=== PATIENT | female | born 1950 | race Caucasian/White ===

== ENCOUNTER 2023-04-28 13:44 | Emergency (ER) | payer MEDICARE, MEDICAID, SELFPAY ==
--- NOTE | ~2023-04-28 | US_ITS ---
US venous doppler [facility] DATE: 04/28/2023 16:28 INDICATION: Pain and swelling of left lower extremity TECHNIQUE: Real-time and color flow imaging and Doppler analysis of the veins of the left lower extre mity COMPARISON: None FINDINGS: Left greater saphenous vein is patent. There is spontaneous and phasic flow and normal augmentation and color flow signal and normal [place] of the left common femoral, femoral and popliteal veins. The posterior tibial and peroneal veins are not visualized, possibly due to edema. IMPRESSION: Nonvisualization of the posterior tibial and peroneal veins which may be due to edema No evidence of deep venous thrombosis of left common femoral, femoral or popliteal veins Reviewed, dictated and finalized at [facility]. Reviewed, dictated and finalized at [facility]. IMPRESSION: Nonvisualization of the posterior tibial and peroneal veins which m ay be due to edema No evidence of deep venous thrombosis of left common femoral, femoral or poplit eal veins
[2023-04-28 13:53] VITALS: BP 151/74; PULSE 83; RESP 20; TEMP 36.6; O2SAT 100
--- NOTE | 2023-04-28 17:27 | ED.LOWEXIN ---
HPI - Extremity Injury (Lower) General Chief Complaint: Extremity Injury, Lower <Vonnie Longoria PA-C - Last Filed: 04/28/23 19:26> Stated Complaint: left leg pain <Vonnie Longoria PA-C - Last Filed: 04/28/23 19:26> Time Seen by Provider: 04/28/23 17:06 <Vonnie Longoria PA-C - Last Filed: 04/28/23 19:26> Source: patient <ISABELLE Owens Last Filed: 04/28/23 19:26> Mode of arrival: ambulatory <ISABELLE Owens Last Filed: 04/28/23 19:26> Limitations: other (Poor historian) <Vonnie Longoria PA-C - Last Filed: 04/28/23 19:26> History of Present Illness HPI Narrative: This is a 72-year-old female that presents emergency department for left calf pain. Ongoing over the last couple of days. Reports a possible injury while trying to step up onto a stool. She was brought to the emergency department to rule out a blood clot in her leg. The pain is achy and constant. She has been taking Tylenol with some relief. Denies fever, chest pain, shortness of breath, new edema, or erythema of the leg. <Vonnie Longoria PA-C - Last Filed: 04/28/23 19:26> Related Data Allergies/Adverse Reactions: Allergies Allergy/AdvReac Type Severity Reaction Status Date / Time codeine Allergy Intermediate Unverified 07/07/19 13:35 Penicillins Allergy Intermediate Unverified 07/07/19 13:35 Sulfa (Sulfonamide Allergy Intermediate Unverified 07/07/19 13:35 Antibiotics) <Vonnie Longoria PA-C - Last Filed: 04/28/23 19:26> Review of Systems Review of Systems: CONSTITUTIONAL: Denies fever CARDIOVASCULAR: Denies chest pain, or edema. RESPIRATORY: Denies dyspnea. SKIN: Denies rash MUSCULOSKELETAL: Reports myalgia. <ISABELLE Owens Last Filed: 04/28/23 19:26> All systems reviewed & are unremarkable except as noted in HPI and below <Vonnie Longoria PA-C - Last Filed: 04/28/23 19:26> [facility] Past Medical History Medical History: Medical History (Updated 04/29/23 @ 00:00 by Danyel Polk) History of diabetes mellitus <Vonnie Longoria PA-C - Last Filed: 04/28/23 19:26> Social History Social History: Social History (Updated 04/28/23 @ 17:29 by Vonnie Longoria PA-C) Smoking status: Never smoker <Vonnie Longoria PA-C - Last Filed: 04/28/23 19:26> Exam Narrative: GENERAL: Well-appearing, well-nourished, and in no acute distress. HEAD: Normocephalic, atraumatic. EYES: EOMI. CHEST: No respiratory distress. HEART: Regular rate EXTREMITIES: Normal range of motion. Edema to the bilateral lower extremities. No erythema or warmth. Normal DP pulses. Normal sensation. Left posterior calf with mild tenderness to palpation SKIN: Warm, dry, no rash. NEURO: No focal deficits. Alert and oriented x3. PSYCH: Normal mood and affect <Vonnie Longoria PA-C - Last Filed: 04/28/23 19:26> Course Course Emergency Course: Had a lengthy discussion with the patient about the limitations of our ultrasound today. With her having symptoms, several risk factors, and an elevated D-dimer we will presumptively treat for a DVT in her calf after discussion with Dr. Degroot. He will also get her set up with a repeat ultrasound soon <Vonnie Longoria PA-C - Last Filed: 04/28/23 19:26> BDC MANAGER/PA Physician Supervision This is a was performed by both a physician and an APC. I performed all aspects of the MDM as documented w/ the following additions: 72-year-old female presenting with calf pain. Due to body habitus the ultrasound was equivocal. After discussed with PCP should be started on anticoagulation and will obtain a different DVT scan outpatient. All questions answered. Patient in agreement w/ disposition. <Lai Mallory MD - Last Filed: 04/30/23 00:38> Consultations Consultation #1: Spoke with Dr. Degroot about patient and work-up. He would like patient to be presumptively treated for a DVT in her calf. He will get her set up with a rep
[2023-04-28 18:04] LABS: Basophils Percent Auto 0.4 % (0.2-1.2); Eosinophils Absolute Auto 0.1 K/mm3 (0-0.3); Eosinophils Percent Auto 1.6 % (0-4.4); Hematocrit 42.3 % (37.0-47.0); Hemoglobin 13.3 g/dL (12.0-15.0); Immature Granulocyte Absolute 0.03 K/mm3 (0.00-0.031); Immature Granulocyte Percent A 0.4 % (0-0.5); Lymphocytes Absolute Auto 2.53 K/mm3 (0.9-3.2); Lymphocytes Percent Auto 36.5 % (18.3-44.2); Mean Corpuscular HGB Conc 31.4 g/dl (32-36); Mean Corpuscular Hemoglobin 26.4 pg (26-34); Mean Corpuscular Volume 84.1 fl (80-100); Mean Platelet Volume 9.8 fl (7.4-10.4); Monocytes Absolute Auto 0.7 K/mm3 (0.1-0.6); Monocytes Percent Auto 9.5 % (2.6-8.5); Neutrophils Absolute Auto 3.6 K/mm3 (1.3-6.7); Neutrophils Percent Auto 51.6 % (45.5-73.1); Platelet Count Result 256 k/mm3 (150-375); Red Blood Count 5.03 M/mm3 (4.2-5.4); Red Cell Distribution Width 16.7 % (11.5-14.5); White Blood Count 6.9 K/mm3 (4.5-10.0)
[2023-04-28 18:14] LABS: Alanine Aminotransferase 19 U/L (6-35); Albumin Level 4.3 g/dL (3.5-5.1); Alkaline Phosphatase 128 U/L (38-126); Anion Gap 7 mmol/L (8-16); Aspartate Amino Transferase 27 U/L (14-36); Bilirubin,Total 0.4 mg/dL (0.2-1.3); Blood Urea Nitrogen 21 mg/dL (7-17); Calcium 8.8 mg/dL (8.4-10.2); Carbon Dioxide 30 mmol/L (22-30); Chloride 100 mmol/L (98-107); Estimated CRCL calculation 61 ml/min; Estimated Glomerular Filt Rate > 60; Glucose 107 mg/dL (65-110); Potassium 3.9 mmol/L (3.4-5.0); Prothrombin Time 13.4 Seconds (11.1-14.7); Sodium 137 mmol/L (137-145)
[2023-04-28 18:15] LABS: Partial Thromboplastin Time 29.2 SECONDS (22.3-36.8)
[2023-04-28 18:28] LABS: D Dimer 1.16 ug/mL (<0.48)
[2023-04-28] MEDS: RIVAROXABAN 15 MG TABLET PO (19:26)
[2023-04-28] MEDS: ACETAMINOPHEN 500 MG TABLET 1000 MG PO (19:26)
--- NOTE | 2023-04-28 19:30 | PC.NURSE ---
Attempted to call pt contacts multiple times with no success. Pt states she lives home alone. Pt states she does not walk. Pt appears to be mentally delayed.
== END 2023-04-28 20:27 | disposition home or self-care (01) ==
PROVIDERS: Emergency Provider Physician Assistant; PCP Internal Medicine
DX: M79.662 Pain in left lower leg (principal); R79.1 Abnormal coagulation profile; E11.9 Type 2 diabetes mellitus without complications
CPT/HCPCS: 36415; 80053; 85025; 85380; 85610; 85730; 93971; 99284; A9270

== ENCOUNTER 2025-02-15 06:19 | Emergency (ER) | payer MEDICARE, MEDICAID, SELFPAY ==
--- NOTE | ~2025-02-15 | XR_ITS ---
XR chest 1V 02/15/2025 09:28 Indication: Altered mental status. Shoulder pain. Procedure: AP view of the chest Comparison: 07/07/2019 Findings: Cardiomegaly. Pulmonary vascular congestion. No pleural effusion or pneumothorax. No acute osseous abnormality. Impression: 1: Cardiomegaly with pulmonary vascular congestion. Reviewed, dictated and finalized at location [facility]. Impression: 1: Cardiomegaly with pulmonary vascular congestion.
--- NOTE | ~2025-02-15 | CT_ITS ---
CT brain wo con Ordering provider: Lai Mallory MD History: 74 years Female with . AMS . Comparison: None. Technique: CT of the head without contrast. Radiation reduction technique utilized. The dose-length p roduct was 681 mGy-cm. FINDINGS: BRAIN PARENCHYMA AND CSF SPACES: Mild leukoaraiosis and diffuse cortical atrophy. Mild atheromatous d isease. No midline shift, mass effect or hemorrhage. The brain parenchyma and CSF spaces are otherwi se normal. VISUALIZED PARANASAL SINUSES: Right maxillary sinus disease. Otherwise, Well aerated. MASTOIDS: Well aerated. BONES: Bifid anterior arch of C1. The bones appear intact. SOFT TISSUES: Visualized nasopharynx is normal. Superficial soft tissues are normal. IMPRESSION: No acute intracranial findings. Reviewed, dictated and finalized at location A.
--- NOTE | ~2025-02-15 | CT_ITS ---
Noncontrast CT scan of the cervical spine Technique: Multiple contiguous axial [address] images of the cervical spine were obtained and rec onstructed in 2D sagittal and coronal planes on the acquisition scanner. Dose reduction technique was used on this scan by utilizing automated exposure control, adjustment of the mA and/or kV according to patient size. The dose-length product (DLP) was 527.03 mGy-cm. Clinical History: Pain Findings: No acute fractures or dislocations. There is moderate to advanced degenerative disc narrow ing at C5-C6 and C6-C7. There is moderate degenerative disc narrowing at C3-C4 and C4-C5. There is mu ltilevel facet arthropathy the cervical spine. There is probable chronic fracture deformity at the an terior arch of C1. There is bilateral neural foraminal narrowing at C3-C4. There is left neural edilberto inal narrowing at C4-C5. There is no definite high-grade canal stenosis. No prevertebral soft tissue swelling. Impression: No acute fracture or subluxation of the cervical spine. Chronic fracture deformity the anterior arch of C1. Degenerative spondylosis, as above. Reviewed, dictated and finalized at [facility]. Impression: No acute fracture or subluxation of the cervical spine. Chronic fracture deformity the anterior arch of C1. Degenerative spondylosis, as above.
--- NOTE | ~2025-02-15 | XR_ITS ---
Right Shoulder Technique: AP and scapular Y views were obtained. Clinical History: Pain Findings: No fracture or dislocation is seen. Osseous alignment is anatomic. The glenohumeral and acr omioclavicular joint spaces are preserved. Soft tissues are unremarkable. Impression: Unremarkable right shoulder radiographs. Reviewed, dictated and finalized at [facility]. Impression: Unremarkable right shoulder radiographs.
[2025-02-15 06:22] VITALS: BP 153/80; PULSE 101; RESP 20; TEMP 36.6; O2SAT 97
--- OUTSIDE RECORDS SUMMARY | 2025-02-15 07:19 | XMS_ITS | Encounter Summary ---
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 Historical Provider Final Res ult documented in this encounter Visit Diagnoses Not on filedocumented in this encounter Care Teams Applied Computer Science Professor Relationship Specialty Start Date End Date No, Physician PCP - General 08/12/18 documented as of this encounter
--- OUTSIDE RECORDS SUMMARY | 2025-02-15 07:19 | XMS_ITS | Referral Summary ---
Author Organization [facility] Physician Office Building [address] [place] [id number] Care Team Providers Care House Nurse Name Role Phone No, Physician Primary Care Provider [phone] Allergies Active Allergy Reactions Criticality Noted Date Comments Codeine Sulfate Unknown 02/05/2019 Penicillin G Benzathine Unknown 02/05/2019 Sulfa (Sulfonamide Antibiotics) Unknown 01/25 Medications clindamycin (CLEOCIN) 150 mg capsule 05/25/2018 Active ezetimibe (ZETIA) 10 mg tablet 07/27/2018 Active ibuprofen (ADVIL,MOTRIN) 800 mg tablet 06/01/2018 Activ e levoFLOXacin (LEVAQUIN) 750 mg tablet 07/29/2018 Active levothyroxine (SYNTHROID, LEVOTHROID) 75 mcg tablet 08/24/2018 Active losartan (COZAAR) 50 mg tablet 07/27/2018 Active omeprazole (PriLOSEC) 20 mg capsule 06/26/2018 Active pravastatin (PRAVACHOL) 40 mg tablet 07/27/2018 Active sucralfate (CARAFATE) 1 gram tablet 07/24/2018 Active traMADol (ULTRAM) 50 mg tablet Take 50 mg by mouth every 6 (six) hours as needed for pain. Active cyclobenzaprine (FLEXERIL) 10 mg tablet 11/02/2018 Active metFORMIN (GLUCOPHAGE) 500 mg tablet 10/23/2018 Active Active Problems Problem Noted Date Diagnosed Date Subacromial impingement of right shoulder 2017 Biceps tendinitis on right 08/25/2018 Trapezius muscle spasm 08/25/2018 Social History Tobacco Use Types Packs/Day Years Used Date Smoking Tobacco: Never Smokeless Tobacco: Never PHQ-2 Answer Date Recorded PHQ-2 Score 0 12/30/2018 Personal Safety Answer Date Recorded Getting School Help Needed Not on file 10/08 Comments Unknown Sex and Gender Information Value Date Recorded Sex Assigned at Not on file 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 Gender Identity Not on file Sexual Orientation Not on file Last Filed Vital Signs Vital Sign Reading Time Taken Comments Blood Pressure 144/77 06/07/2016 7:52 AM CDT Pulse 68 06/07/2016 7:52 AM CDT Temperature 36.7 C (98 F) 06/07/2016 7:52 AM CDT Respiratory Rate - - Oxygen Saturation 95% 06/07/2016 7:52 AM CDT Inhaled Oxygen Concentration - - Weight 117.9 kg (260 lb) 08/25/2018 8:37 AM CDT Height 160 cm (5' 2.99 ) 02/05/2019 11:03 AM CDT Body Mass Index 46.06 08/25/2018 8:37 AM CDT Plan of Treatment Not on file Insurance * Guarantor: John Lambert Account Type Relation to Patient Date of Phone Billing Address Personal/Family Self 1950 [address] [place] [address] [facility] MEDICARE ADV[facility]AGE [facility] Address: [address] [address] [place] [address] [address] [place] [id number] Care Teams House Nurse Relationship Specialty Start Date End Date No, Physician PCP - General 08/12/18
--- OUTSIDE RECORDS SUMMARY | 2025-02-15 07:19 | XMS_ITS | Encounter Summary ---
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 Historical Provider Final Res ult documented in this encounter Visit Diagnoses Not on filedocumented in this encounter Care Teams Joy Loading Machine Operator Relationship Specialty Start Date End Date No, Physician PCP - General 08/12/18 documented as of this encounter
--- OUTSIDE RECORDS SUMMARY | 2025-02-15 07:19 | XMS_ITS | Encounter Summary ---
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 Historical Provider Final Res ult documented in this encounter Visit Diagnoses Not on filedocumented in this encounter Care Teams Director Of Institutional Research Relationship Specialty Start Date End Date No, Physician PCP - General 08/12/18 documented as of this encounter
--- OUTSIDE RECORDS SUMMARY | 2025-02-15 07:19 | XMS_ITS | Clinical Summary ---
Author Organization [facility] Physician Office Building [address] [place] [phone] Care Team Providers Care Relay Mechanic Name Role Phone No, Physician Primary Care Provider [phone] Allergies Active Allergy Reactions Criticality Noted Date [...] on right 08/25/2018 Trapezius muscle spasm 08/25/2018 Surgical History Surgery Date Site/Laterality Comments KNEE SURGERY HYSTERECTOMY FOOT SURGERY HAND SURGERY ELBOW SURGERY BLADDER SURGERY Medical History Medical History Date Comments Arthritis Hypertension Family History Medical History Relation Name Comments Cancer Brother Stroke Father Heart disease Mother Relation Name Status Comments Brother Father Mother Social History Tobacco Use Types Packs/Day Years Used Date Smoking Tobacco: Never Smokeless Tobacco: Never PHQ-2 Answer Date Recorded PHQ-2 Score 0 12/30/2018 Personal Safety Answer Date Recorded Getting School Help Needed Not on file 10/08 Comments Unknown Sex and Gender Information Value Date Recorded Sex Assigned at Not on file 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 [place] [address] [facility] MEDICARE ADVANTAGE * Guarantor: John Lambert Account Type Relation to Patient Date of Phone Billing Address Personal/Family Self [address] [place] [address] Care Teams Relay Mechanic Relationship Specialty Start Date End Date No, Physician PCP - General 08/12/18
--- OUTSIDE RECORDS SUMMARY | 2025-02-15 07:19 | XMS_ITS | Encounter Summary ---
Author Organization 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 Historical Provider Final Res ult documented in this encounter Visit Diagnoses Not on filedocumented in this encounter Care Teams Uniform Force Captain Relationship Specialty Start Date End Date No, Physician PCP - General 08/12/18 documented as of this encounter
--- OUTSIDE RECORDS SUMMARY | 2025-02-15 07:20 | XMS_ITS | Data Portability ---
Author Organization [facility], Main Office Address [address] [place] [address] Care Team Providers Care Military Police Officer Name Role Phone HOLLAND DEGROOT Primary Care Provider HOLLAND DEGROOT Referring Provider Assessment Encounter Date Assessment Date Assessment LastModified by Organization Details LastModified Time 04/16/2023 04/16/2023 12/18/2022: Labs obtained after patient visit. Case sent to [facility] Urine micro alb 45.9 TSH: 7.690, FT4: 0.78 CMP: gluc 121, TP 8.4H,Alb 4.6H Chol 280, TG 148, HDL 63, LDL 187 CBC: Stable Not available 04/16/2023 08:42:45 03/03/2024 03/03/2024 12/18/2022: Labs obtained after patient visit. Case sent to [facility] Urine micro alb 45.9 TSH: 7.690, FT4: 0.78 CMP: gluc 121, TP 8.4H,Alb 4.6H Chol 280, TG 148, HDL 63, LDL 187 CBC: Stable Not available 03/03/2024 11:37:05 Plan of Treatment Reminders Order Date Submit Date Provider Last Modified By Organization Details Last Modified Time Details Appointments Any 15 2024 01:15P Concepcion vital MD Not available Not available Not available Lab lipid panel, serum 2023 024 LEIGH Not available 03/03/2024 14:06:10 CMP, serum or plasma 2023 024 LEIGH Not available 03/03/2024 14:06:17 CBC w/ auto diff 2023 024 LEIGH Not available 03/03/2024 13:51:03 TSH + free T4, serum 2023 024 [email or web address] Not available 03/10/2024 09:22:39 vitamin D, 25-hydrox y, total, serum 2023 024 Not available 03/10/2024 09:22:39 microalbu min, urine 2023 024 LEIGH Not available 03/03/2024 16:38:21 glycohemo globin, total, blood 2023 024 LEIGH Not available 03/03/2024 20:46:49 vitamin D, 25-hydrox y, total, serum 2022 023 Not available 04/23/2023 14:45:24 lipid panel, serum 2022 023 LEIGH Not available 04/16/2023 13:11:10 CMP, serum or plasma 2022 023 LEIGH Not available 04/16/2023 13:11:18 CBC w/ auto diff 2022 023 LEIGH Not available 04/16/2023 13:14:34 TSH + free T4, serum 2022 023 Not available 04/23/2023 14:45:07 Referral pulmonolo gist referral 2023 024 [email or web address] Ray Medina MD, [address] [place], [address], 09/06/2024 11:13:10 podiatris t referral 2023 024 [email or web address] Ryan Smith DPM, [address], [place], [address], 09/06/2024 11:13:[address] referral 2023 024 [email or web address] [facility] (Audiology), [address], [place], [address], 09/30/2024 18:47:14 orthopedi c surgeon referral 2022 023 [email or web address] Rajesh Mazariegos MD, [address], [facility], [place], [address], 11/21/2023 11:11:03 physical therapist referral 2022 023 [email or web address] [facility], [address], [place], [address], 11/05/2023 15:56:02 pulmonolo gist referral 2022 023 [email or web address] Ray Medina MD, [address] [place], [address], 11/21/2023 11:11:02 podiatris t referral 2022 023 [email or web address] Ryan Smith DPM, [address], [place], [address], 11/21/2023 11:11:03 Procedures None recorded. Surgeries None recorded. Imaging DEXA, axial skeleton [email or web address] [place] [address] (Radiology), [address] [place], [address], 09/21/2024 08:42:57 XR, knee, 3 view 2022 023 [facility] (Radiology), [address] [place], [address], 04/16/2023 14:34:35 DEXA, axial skeleton 2022 023 [facility] (Radiology), [address] [place], [address], 04/16/2023 15:49:20 Medication Orders None recorded. Patient TargetsNo targets recorded. Patient Instructions Encounter Date Encounter Id Patient Instructions Last Modified By Organization Details Last Modified Time 03/03/2024 [id number] dementia rating scale-2* [email or web address] Not available 03/04/2024 12:59:40 alcohol misuse* lian 2 Not available 03/03/2024 17:51:41 multi-dimensiona l health assessment questionnaire* [email or web address] 2 Not available 03/03/2024 17:51:41 Personalized Hea lt Plan and Screening Recommendations Advance Directives - Do you have one? Advance Directives - Do we have your advance directive on file in your health record? Primary Prevention/Interven tion (prevents or decreases the chance of common diseases from occurring) Smoking Risk: Alcohol Misuse Screening: Weight: Physical activity: Nutrition: Fall Risk (screened today): Vaccines Pneumococcal: Influenza: Chronic Disease Risks Stroke: I have no recommendations Active diagnosis, Continue current treatment plan Heart Attack: I have no recommendations Act david diagnosis, Continue current treatment plan Clogging of the Arteries: I have no recommendations Act david diagnosis, Continue current treatment plan Diabetes: Active diagnosis, Continue current treatment plan Secondary Prevention/Interven tion (detects treatable diseases before they may cause symptoms, disability, or ) Breast Cancer Screening with mammogram: Cervical/Uterine/Ov lawrence Cancer Screening: Osteoporosis Screening: Date Screening Last Performed: Colon Cancer Screening: Date Screening Last Performed: Eye Disease Screening: Dementia Risk: Depression Screening: Active diagnosis, Continue current treatment plan Not available 03/03/2024 14:28:43 Reason for Referral Radiotelegrapher Referral for C hronic cough Referring Physician: [facility], Encounter Date: 04/16/2023 Orthopedic Surgeon Referral for Pain of left knee joint Referring Physician: [facility], Encounter Date: 04/16/2023 Physical Therapist Referral for Pain of left knee joint Referring Physician: Deny F[facility], Encounter Date: 04/16/2023 Production Grader Referral for Onyc homycosis of toenails Referring Physician: [facility], Encounter Date: 04/16/2023 Radiotelegrapher Referral for C hronic cough Referring Physician: [facility], Encounter Date: 03/03/2024 Production Grader Referral for Onyc homycosis of toenails Referring Physician: [facility], Encounter Date: 03/03/2024 Partner Referral for Sen sorineural hearing loss Referring Physician: [facility], Encounter Date: 03/03/2024 Results Created Date Observation Date Name Description Value Unit Range Abnormal Flag Note LastModifiedBy Organization Detail LastModifiedTime 12/18/19 23 12/18/2022 MICRO ALBUM IN RANDO M URINE microalbumin , urine 45.9 mg/L 0.0-16 .6 high Not Available [facility] (Lab) [address] [place], [address], 12/18/2022 15:20:11 12/18/19 23 12/18/2022 TSH thyroid-stim ulating hormone 7.690 uIU/m L 0.465- 4.680 high Not Available [facility] (Lab) [address] [place], [address], 12/18/2022 14:54:20 12/18/19 23 12/18/2022 T4 FREE free T4 0.78 NG/dL 0.78-2 .19 Not Available [facility] (Lab) [address] [place], [address], 12/18/2022 14:24:21 12/18/19 23 12/18/2022 COMPR EHENS DAVID METAB OLIC PANEL creatinine 0.93 mg/dL 0.66-1 .25 Not Available [facility] (Lab) [address] [place], [address], 12/18/2022 14:24:09 12/18/19 23 12/18/2022 COMPR EHENS DAVID METAB OLIC PANEL sodium 138 mmol/ L 137-14 5 Not Available [facility] (Lab) [address] [place], [address], 12/18/2022 14:24:09 12/18/19 23 12/18/2022 COMPR EHENS DAVID METAB OLIC PANEL potassium 4.4 mmol/ L 3.5-5. 1 Not Available [facility] (Lab) [address] [place], [address], 12/18/2022 14:24:09 12/18/19 23 12/18/2022 COMPR EHENS DAVID METAB OLIC PANEL chloride 104 mmol/ L 98-107 Not Available [facility] (Lab) [address] [place], [address], 12/18/2022 14:24:09 12/18/19 23 12/18/2022 COMPR EHENS DAVID METAB OLIC PANEL carbon dioxide 24 mmol/ L 22-30 Not Available [facility] (Lab) [address] [place], [address], 12/18/2022 14:24:09 12/18/19 23 12/18/2022 COMPR EHENS DAVID METAB OLIC PANEL anion gap 14.4 mmol/ L 14-22 Not Available [facility] (Lab) [address] [place], [address], 12/18/2022 14:24:09 12/18/19 23 12/18/2022 COMPR EHENS DAVID METAB OLIC PANEL glucose 121 mg/dL 70-99 high Not Available [facility] (Lab) [address] [place], [address], 12/18/2022 14:24:09 12/18/19 23 12/18/2022 COMPR EHENS DAVID METAB OLIC PANEL BUN 27 mg/dL 8-19 high Not Available [facility] (Lab) [address] [place], [address], 12/18/2022 14:24:09 12/18/19 23 12/18/2022 COMPR EHENS DAVID METAB OLIC PANEL GFR 59 Refer ence Range : [place] ge GFR Healt hy Adult : >60 mL/mi n/1.7 3 m2 Chron ic Kidne y Disea se: 15-60 mL/mi n/1.7 3 m2 Kidne y Failu re: <15/m L/min /1.73 m2 www.n iddk. [facility] The MDRD study equat ion has not been valid ated in child james <18 years of age; pregn ant women ; the elder ly >85 years of age; or in some racia l or ethni c subgr oups, such as Hispa nics. Outsi de the valid ated rodrigo eters , estim ated GFR is less accur ate, requi ring clini jigna judgm ent on a case- by-ca se basis . Clini jigna inter preta tion for other races and ages must be made by the clini natasha. The MDRD study equat ion has not been valid ated for the evalu ation of serum creat inine relat ed to nutri christy l statu s or medic ation usage . For perso ns <18 years of age, a pedia tric GFR calcu lator is avail able on the [facility] websi te: https ://soraida irwin.jose elias fountain.o rg/pr ofess ional s/kdo qi/gf r_cal culat or Not Available [facility] (Lab) [address] [place], [address], 12/18/2022 14:24:09 12/18/19 23 12/18/2022 COMPR EHENS DAVID METAB OLIC PANEL alkaline phosphatase 110 U/L 38-126 Not Available [facility] (Lab) [address] [place], [address], 12/18/2022 14:24:09 12/18/19 23 12/18/2022 COMPR EHENS DAVID METAB OLIC PANEL alanine aminotransfe rase 17 U/L 0-35 Not Available [facility] (Lab) [address] [place], [address], 12/18/2022 14:24:09 12/18/19 23 12/18/2022 COMPR EHENS DAVID METAB OLIC PANEL aspartate aminotransfe rase 26 U/L 15-37 Not Available [facility] (Lab) [address] [place], [address], 12/18/2022 14:24:09 12/18/19 23 12/18/2022 COMPR EHENS DAVID METAB OLIC PANEL bilirubin, total 0.60 mg/dL 0.20-1 .30 Not Available [facility] (Lab) [address] [place], [address], 12/18/2022 14:24:09 12/18/19 23 12/18/2022 COMPR EHENS DAVID METAB OLIC PANEL calcium 9.0 mg/dL 8.4-10 .2 Not Available [facility] (Lab) [address] [place], [address], 12/18/2022 14:24:12/18/19 23 12/18/2022 COMPR EHENS DAVID METAB OLIC PANEL total protein 8.4 g/dL 6.3-8. 2 high Not Available [facility] (Lab) [address] [place], [address], 12/18/2022 14:24:09 12/18/19 23 12/18/2022 COMPR EHENS DAVID METAB OLIC PANEL albumin 4.6 g/dL 3.0-4. 4 high Not Available [facility] (Lab) [address] [place], [address], 12/18/2022 14:24:09 12/18/19 23 12/18/2022 COMPR EHENS DAVID METAB OLIC PANEL globulin 3.8 g/dL 2.6-4. 2 Not Available [facility] (Lab) [address] [place], [address], 12/18/2022 14:24:09 12/18/19 23 12/18/2022 COMPR EHENS DAVID METAB OLIC PANEL A/G ratio 1.2 ratio 1.0-2. 0 Not Available [facility] (Lab) [address] [place], [address], 12/18/2022 14:24:09 12/18/19 23 12/18/2022 LIPID PANEL cholesterol 280 mg/dL 140-19 9 high NIH LILLI NSUS RECOM MENDA TION FOR LAZARO STERO L: ADULT CHILD LOW RISK: <200 <170 BORDE RLINE : <200- 239 ----- HIGH RISK: >240 >200 Not Available [facility] (Lab) [address] [place], [address], 12/18/2022 14:23:51 12/18/19 23 12/18/2022 LIPID PANEL triglyceride s 148 mg/dL 0-150 NIH LILLI NSUS REPOR T RECOM MENDA TION FOR TRIGL YCERI ALMA ROSA: ADULT CHILD LOW RISK: <150 ----- BODER LINE: 150-1 99 ----- HIGH RISK: >200 ----- Not Available [facility] (Lab) [address] [place], [address], 12/18/2022 14:23:51 12/18/19 23 12/18/2022 LIPID PANEL HDL cholesterol 63 mg/dL 40- Not Available [facility] (Lab) [address] [place], [address], 12/18/2022 14:23:51 12/18/19 23 12/18/2022 LIPID PANEL LDL cholesterol, calculated 187 mg/dL 0-130 high NIH LILLI NSUS REPOR T RECOM MENDA TIONS FOR LDL: ADULT CHILD LOW RISK <130 <110 (OPTI MAL LDL) <100 ----- BORDE RLINE : 130-1 59 ----- HIGH RISK: >160 >130 A TRIGL YCERI DE RESUL T >400 INVAL IDATE S THE CALCU LATIO N FOR LDL FRACT IONAT ION - THE LDL RESUL T WILL NOT BE REPOR DANDY. Not Available [facility] (Lab) [address] [place], [address], 12/18/2022 14:23:51 12/18/19 23 12/18/2022 CBC/C OMPLE TE BLD COUNT W/DIF F mean red cell volume 84.4 fL 82.0-9 9.0 Not Available [facility] (Lab) [address] [place], [address], 12/18/2022 13:44:16 12/18/19 23 12/18/2022 CBC/C OMPLE TE BLD COUNT W/DIF F white blood cells 5.8 x10'3 /uL 4.2-10 .8 Not Available [facility] (Lab) [address] [place], [address], 12/18/2022 13:44:16 12/18/19 23 12/18/2022 CBC/C OMPLE TE BLD COUNT W/DIF F red blood cells 5.24 x10'6 /uL 3.80-5 .20 high Not Available [facility] (Lab) [address] [place], [address], 12/18/2022 13:44:16 12/18/19 23 12/18/2022 CBC/C OMPLE TE BLD COUNT W/DIF F hemoglobin 13.9 g/dL 12.0-1 5.6 Not Available [facility] (Lab) [address] [place], [address], 12/18/2022 13:44:16 12/18/19 23 12/18/2022 CBC/C OMPLE TE BLD COUNT W/DIF F hematocrit 44.2 % 35.7-4 5.7 Not Available [facility] (Lab) [address] [place], [address], 12/18/2022 13:44:16 12/18/19 23 12/18/2022 CBC/C OMPLE TE BLD COUNT W/DIF F mean red cell hemoglobin 26.5 pg 27.0-3 3.0 low Not Available [facility] (Lab) [address] [place], [address], 12/18/2022 13:44:16 12/18/19 23 12/18/2022 CBC/C OMPLE TE BLD COUNT W/DIF F mean RBC HGB concentratio n 31.4 g/dL 31.0-3 6.0 Not Available [facility] (Lab) [address] [place], [address], 12/18/2022 13:44:16 12/18/19 23 12/18/2022 CBC/C OMPLE TE BLD COUNT W/DIF F red cell distribution width 16.7 % 11.8-1 5.5 high Not Available [facility] (Lab) [address] [place], [address], 12/18/2022 13:44:16 12/18/19 23 12/18/2022 CBC/C OMPLE TE BLD COUNT W/DIF F platelets 276 x10'3 /uL 150-40 0 Not Available [facility] (Lab) [address] [place], [address], 12/18/2022 13:44:16 12/18/19 23 12/18/2022 CBC/C OMPLE TE BLD COUNT W/DIF F mean platelet volume 11.2 fL 9.0-12 .4 Not Available [facility] (Lab) [address] [place], [address], 12/18/2022 13:44:16 12/18/19 23 12/18/2022 CBC/C OMPLE TE BLD COUNT W/DIF F neutrophils 51.5 % 39.0-7 2.0 Not Available [facility] (Lab) [address] [place], [address], 12/18/2022 13:44:16 12/18/19 23 12/18/2022 CBC/C OMPLE TE BLD COUNT W/DIF F lymphocytes 37.4 % 16.0-4 7.0 Not Available [facility] (Lab) [address] [place], [address], 12/18/2022 13:44:16 12/18/19 23 12/18/2022 CBC/C OMPLE TE BLD COUNT W/DIF F monocytes 8.8 % 5.0-12 .0 Not Available [facility] (Lab) [address] [place], [address], 12/18/2022 13:44:16 12/18/19 23 12/18/2022 CBC/C OMPLE TE BLD COUNT W/DIF F eosinophils 1.6 % 1.0-7. 0 Not Available [facility] (Lab) [address] [place], [address], 12/18/2022 13:44:16 12/18/19 23 12/18/2022 CBC/C OMPLE TE BLD COUNT W/DIF F basophils 0.5 % 0.0-2. 0 Not Available [facility] (Lab) [address] [place], [address], 12/18/2022 13:44:16 12/18/19 23 12/18/2022 CBC/C OMPLE TE BLD COUNT W/DIF F immature granulocytes 0.2 % 0.00-0 .50 Not Available [facility] (Lab) [address] [place], [address], 12/18/2022 13:44:16 12/18/19 23 12/18/2022 CBC/C OMPLE TE BLD COUNT W/DIF F neutrophils, absolute count 2.98 x10'3 /uL 1.5-8. 0 Not Available [facility] (Lab) [address] [place], [address], 12/18/2022 13:44:16 12/18/19 23 12/18/2022 CBC/C OMPLE TE BLD COUNT W/DIF F lymphocytes, absolute count 2.16 x10'3 /uL 1.07-3 .43 Not Available [facility] (Lab) [address] [place], [address], 12/18/2022 13:44:16 12/18/19 23 12/18/2022 CBC/C OMPLE TE BLD COUNT W/DIF F monocytes, absolute count 0.51 x10'3 /uL 0.29-0 .99 Not Available [facility] (Lab) [address] [place], [address], 12/18/2022 13:44:16 12/18/19 23 12/18/2022 CBC/C OMPLE TE BLD COUNT W/DIF F eosinophils, absolute count 0.09 x10'3 /uL 0.02-0 .53 Not Available [facility] (Lab) [address] [place], [address], 12/18/2022 13:44:16 12/18/19 23 12/18/2022 CBC/C OMPLE TE BLD COUNT W/DIF F basophils, absolute count 0.03 x10'3 /uL 0.01-0 .08 Not Available [facility] (Lab) [address] [place], [address], 12/18/2022 13:44:16 12/18/19 23 12/18/2022 CBC/C OMPLE TE BLD COUNT W/DIF F immature granulocytes ,absolute 0.01 x10'3 /uL 0.00-0 .05 Not Available [facility] (Lab) [address] [place], [address], 12/18/2022 13:44:16 12/18/19 23 12/18/2022 CBC/C OMPLE TE BLD COUNT W/DIF F nucleated red blood cells 0.0 % -0 Not Available [facility] (Lab) [address] [place] [address], [address], 12/18/2022 13:44:16 12/18/19 23 12/18/2022 CBC/C OMPLE TE BLD COUNT W/DIF F NRBC# 0.00 x10'3 /uL Not Available [facility] (Lab) [address] [place] [address], [address], 12/18/2022 13:44:16 04/16/20 23 04/16/2023 LIPID PANEL cholesterol 232 mg/dL 140-19 9 high NIH LILLI NSUS RECOM MENDA TION FOR LAZARO STERO L: ADULT CHILD LOW RISK: <200 <170 BORDE RLINE : <200- 239 ----- HIGH RISK: >240 >200 Not Available [facility] (Lab) [address] [place] [address], [address], 04/16/2023 13:11:10 04/16/20 23 04/16/2023 LIPID PANEL triglyceride s 124 mg/dL 0-150 NIH LILLI NSUS REPOR T RECOM MENDA TION FOR TRIGL YCERI ALMA ROSA: ADULT CHILD LOW RISK: <150 ----- BODER LINE: 150-1 99 ----- HIGH RISK: >200 ----- Not Available [facility] (Lab) [address] [place] [address], [address], 04/16/2023 13:11:10 04/16/20 23 04/16/2023 LIPID PANEL HDL cholesterol 50 mg/dL 40- Not Available [facility] (Lab) [address] [place] [address], [address], 04/16/2023 13:11:10 04/16/20 23 04/16/2023 LIPID PANEL LDL cholesterol, calculated 157 mg/dL 0-130 high NIH LILLI NSUS REPOR T RECOM MENDA TIONS FOR LDL: ADULT CHILD LOW RISK <130 <110 (OPTI MAL LDL) <100 ----- ADE RLINE : 130-1 59 ----- HIGH RISK: >160 >130 A TRIGL YCERI DE RESUL T >400 INVAL IDATE S THE CALCU LATIO N FOR LDL FRACT IONAT ION - THE LDL RESUL T WILL NOT BE REPOR DANDY. Not Available [facility] (Lab) [address] [place], [address], 04/16/2023 13:11:10 04/16/20 23 04/16/2023 COMPR EHENS DAVID METAB OLIC PANEL sodium 137 mmol/ L 137-14 5 Not Available [facility] (Lab) [address] [place], [address], 04/16/2023 13:11:18 04/16/20 23 04/16/2023 COMPR EHENS DAVID METAB OLIC PANEL potassium 4.0 mmol/ L 3.5-5. 1 Not Available [facility] (Lab) [address] [place], [address], 04/16/2023 13:11:18 04/16/20 23 04/16/2023 COMPR EHENS DAVID METAB OLIC PANEL chloride 96 mmol/ L 98-107 low Not Available [facility] (Lab) [address] [place], [address], 04/16/2023 13:11:18 04/16/20 23 04/16/2023 COMPR EHENS DAVID METAB OLIC PANEL carbon dioxide 27 mmol/ L 22-30 Not Available [facility] (Lab) [address] [place], [address], 04/16/2023 13:11:18 04/16/20 23 04/16/2023 COMPR EHENS DAVID METAB OLIC PANEL anion gap 18.0 mmol/ L 14-22 Not Available [facility] (Lab) [address] [place], [address], 04/16/2023 13:11:18 04/16/20 23 04/16/2023 COMPR EHENS DAVID METAB OLIC PANEL glucose 134 mg/dL 70-99 high Not Available [facility] (Lab) [address] [place], [address], 04/16/2023 13:11:18 04/16/20 23 04/16/2023 COMPR EHENS DAVID METAB OLIC PANEL BUN 22 mg/dL 8-19 high Not Available [facility] (Lab) [address] [place], [address], 04/16/2023 13:11:18 04/16/20 23 04/16/2023 COMPR EHENS DAVID METAB OLIC PANEL creatinine 0.93 mg/dL 0.66-1 .25 Not Available [facility] (Lab) [address] [place], [address], 04/16/2023 13:11:18 04/16/20 23 04/16/2023 COMPR EHENS DAVID METAB OLIC PANEL GFR 59 Refer ence Range : [place] ge GFR Healt hy Adult : >60 mL/mi n/1.7 3 m2 Chron ic Kidne y Disea se: 15-60 mL/mi n/1.7 3 m2 Kidne y Failu re: <15/m L/min /1.73 m2 www.n iddk. nih.g ov The MDRD study equat ion has not been valid ated in child james <18 years of age; pregn ant women ; the elder ly >85 years of age; or in some racia l or ethni c subgr oups, such as Hisny nics. Outsi de the valid ated rodrigo eters , estim ated GFR is less accur ate, requi ring clini jigna judgm ent on a case- by-ca se basis . Clini jigna inter preta tion for other races and ages must be made by the clini natasha. The MDRD study equat ion has not been valid ated for the evalu ation of serum creat inine relat ed to nutri christy l statu s or medic ation usage . For perso ns <18 years of age, a pedia tric GFR calcu lator is avail able on the [facility] websi te: https ://soraida w.jose elias fountain.o karly/pr ofess ional s/kdo qi/gf r_cal culat or Not Available [facility] (Lab) [address] [place], [address], 04/16/2023 13:11:18 04/16/20 23 04/16/2023 COMPR EHENS DAVID METAB OLIC PANEL alkaline phosphatase 111 U/L 38-126 Not Available [facility] (Lab) [address] [place], [address], 04/16/2023 13:11:18 04/16/20 23 04/16/2023 COMPR EHENS DAVID METAB OLIC PANEL alanine aminotransfe rase 18 U/L 0-35 Not Available [facility] (Lab) [address] [place], [address], 04/16/2023 13:11:18 04/16/20 23 04/16/2023 COMPR EHENS DAVID METAB OLIC PANEL aspartate aminotransfe rase 40 U/L 15-37 high Not Available [facility] (Lab) [address] [place], [address], 04/16/2023 13:11:18 04/16/20 23 04/16/2023 COMPR EHENS DAVID METAB OLIC PANEL bilirubin, total 0.60 mg/dL 0.20-1 .30 Not Available [facility] (Lab) [address] [place], [address], 04/16/2023 13:11:18 04/16/20 23 04/16/2023 COMPR EHENS DAVID METAB OLIC PANEL calcium 9.0 mg/dL 8.4-10 .2 Not Available [facility] (Lab) [address] [place], [address], 04/16/2023 13:11:18 04/16/20 23 04/16/2023 COMPR EHENS DAVID METAB OLIC PANEL total protein 8.5 g/dL 6.3-8. 2 high Not Available [facility] (Lab) [address] [place], [address], 04/16/2023 13:11:18 04/16/20 23 04/16/2023 COMPR EHENS DAVID METAB OLIC PANEL albumin 4.2 g/dL 3.0-4. 4 Not Available [facility] (Lab) [address] [place], [address], 04/16/2023 13:11:18 04/16/20 23 04/16/2023 COMPR EHENS DAVID METAB OLIC PANEL globulin 4.3 g/dL 2.6-4. 2 high Not Available [facility] (Lab) [address] [place], [address], 04/16/2023 13:11:18 04/16/20 23 04/16/2023 COMPR EHENS DAVID METAB OLIC PANEL A/G ratio 1.0 ratio 1.0-2. 0 Not Available [facility] (Lab) [address] [place], [address], 04/16/2023 13:11:18 04/16/20 23 04/16/2023 CBC/C OMPLE TE BLD COUNT W/DIF F white blood cells 7.2 x10'3 /uL 4.2-10 .8 Not Available [facility] (Lab) [address] [place], [address], 04/16/2023 13:14:34 04/16/20 23 04/16/2023 CBC/C OMPLE TE BLD COUNT W/DIF F red blood cells 5.07 x10'6 /uL 3.80-5 .20 Not Available [facility] (Lab) [address] [place], [address], 04/16/2023 13:14:34 04/16/20 23 04/16/2023 CBC/C OMPLE TE BLD COUNT W/DIF F hemoglobin 15.5 g/dL 12.0-1 5.6 Not Available [facility] (Lab) [address] [place], [address], 04/16/2023 13:14:34 04/16/20 23 04/16/2023 CBC/C OMPLE TE BLD COUNT W/DIF F hematocrit 42.8 % 35.7-4 5.7 Not Available [facility] (Lab) [address] [place], [address], 04/16/2023 13:14:34 04/16/20 23 04/16/2023 CBC/C OMPLE TE BLD COUNT W/DIF F mean red cell volume 84.4 fL 82.0-9 9.0 Not Available [facility] (Lab) [address] [place], [address], 04/16/2023 13:14:34 04/16/20 23 04/16/2023 CBC/C OMPLE TE BLD COUNT W/DIF F mean red cell hemoglobin 30.6 pg 27.0-3 3.0 Not Available [facility] (Lab) [address] [place], [address], 04/16/2023 13:14:34 04/16/20 23 04/16/2023 CBC/C OMPLE TE BLD COUNT W/DIF F mean RBC HGB concentratio n 36.2 g/dL 31.0-3 6.0 high Not Available [facility] (Lab) [address] [place], [address], 04/16/2023 13:14:34 04/16/20 23 04/16/2023 CBC/C OMPLE TE BLD COUNT W/DIF F red cell distribution width 16.9 % 11.8-1 5.5 high Not Available [facility] (Lab) [address] [place], [address], 04/16/2023 13:14:34 04/16/20 23 04/16/2023 CBC/C OMPLE TE BLD COUNT W/DIF F platelets 291 x10'3 /uL 150-40 0 Not Available [facility] (Lab) [address] [place], [address], 04/16/2023 13:14:34 04/16/20 23 04/16/2023 CBC/C OMPLE TE BLD COUNT W/DIF F mean platelet volume 11.0 fL 9.0-12 .4 Not Available [facility] (Lab) [address] [place], [address], 04/16/2023 13:14:34 04/16/20 23 04/16/2023 CBC/C OMPLE TE BLD COUNT W/DIF F neutrophils 57.7 % 39.0-7 2.0 Not Available [facility] (Lab) [address] [place], [address], 04/16/2023 13:14:34 04/16/20 23 04/16/2023 CBC/C OMPLE TE BLD COUNT W/DIF F lymphocytes 30.8 % 16.0-4 7.0 Not Available [facility] (Lab) [address] [place], [address], 04/16/2023 13:14:34 04/16/20 23 04/16/2023 CBC/C OMPLE TE BLD COUNT W/DIF F monocytes 8.7 % 5.0-12 .0 Not Available [facility] (Lab) [address] [place], [address], 04/16/2023 13:14:34 04/16/20 23 04/16/2023 CBC/C OMPLE TE BLD COUNT W/DIF F eosinophils 2.1 % 1.0-7. 0 Not Available [facility] (Lab) [address] [place], [address], 04/16/2023 13:14:34 04/16/20 23 04/16/2023 CBC/C OMPLE TE BLD COUNT W/DIF F basophils 0.3 % 0.0-2. 0 Not Available [facility] (Lab) [address] [place], [address], 04/16/2023 13:14:34 04/16/20 23 04/16/2023 CBC/C OMPLE TE BLD COUNT W/DIF F immature granulocytes 0.4 % 0.00-0 .50 Not Available [facility] (Lab) [address] [place], [address], 04/16/2023 13:14:34 04/16/20 23 04/16/2023 CBC/C OMPLE TE BLD COUNT W/DIF F neutrophils, absolute count 4.18 x10'3 /uL 1.5-8. 0 Not Available [facility] (Lab) [address] [place], [address], 04/16/2023 13:14:34 04/16/20 23 04/16/2023 CBC/C OMPLE TE BLD COUNT W/DIF F lymphocytes, absolute count 2.23 x10'3 /uL 1.07-3 .43 Not Available [facility] (Lab) [address] [place], [address], 04/16/2023 13:14:34 04/16/20 23 04/16/2023 CBC/C OMPLE TE BLD COUNT W/DIF F monocytes, absolute count 0.63 x10'3 /uL 0.29-0 .99 Not Available [facility] (Lab) [address] [place], [address], 04/16/2023 13:14:34 04/16/20 23 04/16/2023 CBC/C OMPLE TE BLD COUNT W/DIF F eosinophils, absolute count 0.15 x10'3 /uL 0.02-0 .53 Not Available [facility] (Lab) [address] [place], [address], 04/16/2023 13:14:34 04/16/20 23 04/16/2023 CBC/C OMPLE TE BLD COUNT W/DIF F basophils, absolute count 0.02 x10'3 /uL 0.01-0 .08 Not Available [facility] (Lab) [address] [place], [address], 04/16/2023 13:14:34 04/16/20 23 04/16/2023 CBC/C OMPLE TE BLD COUNT W/DIF F immature granulocytes ,absolute 0.03 x10'3 /uL 0.00-0 .05 Not Available [facility] (Lab) [address] [place], [address], 04/16/2023 13:14:34 04/16/20 23 04/16/2023 CBC/C OMPLE TE BLD COUNT W/DIF F nucleated red blood cells 0.0 % -0 Not Available [facility] (Lab) [address] [place], [address], 04/16/2023 13:14:34 04/16/20 23 04/16/2023 CBC/C OMPLE TE BLD COUNT W/DIF F NRBC# 0.00 x10'3 /uL Not Available [facility] (Lab) [address] [place], [address], 04/16/2023 13:14:34 04/16/20 23 04/16/2023 T4 FREE free T4 0.87 NG/dL 0.78-2 .19 Not Available [facility] (Lab) [address] [place], [address], 04/16/2023 13:20:08 04/16/20 23 04/16/2023 VITAM IN D 25-HY DROXY vd25oh 39.4 NG/mL 30-100 Vitam in D Statu s: Defic ient: <20 ng/mL Insuf ficie nt: 20-29 ng/mL Suffi cient : 30-10 0 ng/mL Not Available [facility] (Lab) [address] [place], [address], 04/16/2023 13:21:08 04/16/20 23 04/16/2023 TSH thyroid-stim ulating hormone 8.640 uIU/m L 0.465- 4.680 high Not Available [facility] (Lab) [address] [place], [address], 04/16/2023 13:29:08 03/03/20 24 03/03/2024 CBC/C OMPLE TE BLD COUNT W/DIF F white blood cells 5.9 x10'3 /uL 4.2-10 .8 Not Available [facility] (Lab) [address] [place], [address], 03/03/2024 13:51:03 03/03/20 24 03/03/2024 CBC/C OMPLE TE BLD COUNT W/DIF F red blood cells 4.78 x10'6 /uL 3.80-5 .20 Not Available [facility] (Lab) [address] [place], [address], 03/03/2024 13:51:03 03/03/20 24 03/03/2024 CBC/C OMPLE TE BLD COUNT W/DIF F hemoglobin 13.1 g/dL 12.0-1 5.6 Not Available [facility] (Lab) [address] [place], [address], 03/03/2024 13:51:03 03/03/20 24 03/03/2024 CBC/C OMPLE TE BLD COUNT W/DIF F hematocrit 40.8 % 35.7-4 5.7 Not Available [facility] (Lab) [address] [place], [address], 03/03/2024 13:51:03 03/03/20 24 03/03/2024 CBC/C OMPLE TE BLD COUNT W/DIF F mean red cell volume 85.4 fL 82.0-9 9.0 Not Available [facility] (Lab) [address] [place], [address], 03/03/2024 13:51:03 03/03/20 24 03/03/2024 CBC/C OMPLE TE BLD COUNT W/DIF F mean red cell hemoglobin 27.4 pg 27.0-3 3.0 Not Available [facility] (Lab) [address] [place], [address], 03/03/2024 13:51:03 03/03/20 24 03/03/2024 CBC/C OMPLE TE BLD COUNT W/DIF F mean RBC HGB concentratio n 32.1 g/dL 31.0-3 6.0 Not Available [facility] (Lab) [address] [place], [address], 03/03/2024 13:51:03 03/03/20 24 03/03/2024 CBC/C OMPLE TE BLD COUNT W/DIF F red cell distribution width 15.5 % 11.8-1 5.5 Not Available [facility] (Lab) [address] [place], [address], 03/03/2024 13:51:03 03/03/20 24 03/03/2024 CBC/C OMPLE TE BLD COUNT W/DIF F platelets 240 x10'3 /uL 150-40 0 Not Available [facility] (Lab) [address] [place], [address], 03/03/2024 13:51:03 03/03/20 24 03/03/2024 CBC/C OMPLE TE BLD COUNT W/DIF F mean platelet volume 10.9 fL 9.0-12 .4 Not Available [facility] (Lab) [address] [place], [address], 03/03/2024 13:51:03 03/03/20 24 03/03/2024 CBC/C OMPLE TE BLD COUNT W/DIF F neutrophils 58.5 % 39.0-7 2.0 Not Available [facility] (Lab) [address] [place], [address], 03/03/2024 13:51:03 03/03/20 24 03/03/2024 CBC/C OMPLE TE BLD COUNT W/DIF F lymphocytes 30.4 % 16.0-4 7.0 Not Available [facility] (Lab) [address] [place], [address], 03/03/2024 13:51:03 03/03/20 24 03/03/2024 CBC/C OMPLE TE BLD COUNT W/DIF F monocytes 7.6 % 5.0-12 .0 Not Available [facility] (Lab) [address] [place], [address], 03/03/2024 13:51:03 03/03/20 24 03/03/2024 CBC/C OMPLE TE BLD COUNT W/DIF F eosinophils 2.7 % 1.0-7. 0 Not Available [facility] (Lab) [address] [place], [address], 03/03/2024 13:51:03 03/03/20 24 03/03/2024 CBC/C OMPLE TE BLD COUNT W/DIF F basophils 0.5 % 0.0-2. 0 Not Available [facility] (Lab) [address] [place], [address], 03/03/2024 13:51:03 03/03/20 24 03/03/2024 CBC/C OMPLE TE BLD COUNT W/DIF F immature granulocytes 0.3 % 0.00-0 .50 Not Available [facility] (Lab) [address] [place], [address], 03/03/2024 13:51:03 03/03/20 24 03/03/2024 CBC/C OMPLE TE BLD COUNT W/DIF F neutrophils, absolute count 3.44 x10'3 /uL 1.5-8. 0 Not Available [facility] (Lab) [address] [place], [address], 03/03/2024 13:51:03 03/03/20 24 03/03/2024 CBC/C OMPLE TE BLD COUNT W/DIF F lymphocytes, absolute count 1.79 x10'3 /uL 1.07-3 .43 Not Available [facility] (Lab) [address] [place], [address], 03/03/2024 13:51:03 03/03/20 24 03/03/2024 CBC/C OMPLE TE BLD COUNT W/DIF F monocytes, absolute count 0.45 x10'3 /uL 0.29-0 .99 Not Available [facility] (Lab) [address] [place], [address], 03/03/2024 13:51:03 03/03/20 24 03/03/2024 CBC/C OMPLE TE BLD COUNT W/DIF F eosinophils, absolute count 0.16 x10'3 /uL 0.02-0 .53 Not Available [facility] (Lab) [address] [place], [address], 03/03/2024 13:51:03 03/03/20 24 03/03/2024 CBC/C OMPLE TE BLD COUNT W/DIF F basophils, absolute count 0.03 x10'3 /uL 0.01-0 .08 Not Available [facility] (Lab) [address] [place], [address], 03/03/2024 13:51:03 03/03/20 24 03/03/2024 CBC/C OMPLE TE BLD COUNT W/DIF F immature granulocytes ,absolute 0.02 x10'3 /uL 0.00-0 .05 Not Available [facility] (Lab) [address] [place], [address], 03/03/2024 13:51:03 03/03/20 24 03/03/2024 CBC/C OMPLE TE BLD COUNT W/DIF F nucleated red blood cells 0.0 % -0 Not Available [facility] (Lab) [address] [place], [address], 03/03/2024 13:51:03 03/03/20 24 03/03/2024 CBC/C OMPLE TE BLD COUNT W/DIF F NRBC# 0.00 x10'3 /uL Not Available [facility] (Lab) [address] [place], [address], 03/03/2024 13:51:03 03/03/20 24 03/03/2024 LIPID PANEL cholesterol 191 mg/dL 140-19 9 NIH LILLI NSUS RECOM MENDA TION FOR LAZARO STERO L: ADULT CHILD LOW RISK: <200 <170 BORDE RLINE : <200- 239 ----- HIGH RISK: >240 >200 Not Available [facility] (Lab) [address] [place], [address], 03/03/2024 14:06:10 03/03/20 24 03/03/2024 LIPID PANEL triglyceride s 122 mg/dL 0-150 NIH LILLI NSUS REPOR T RECOM MENDA TION FOR TRIGL YCERI ALMA ROSA: ADULT CHILD LOW RISK: <150 ----- BODER LINE: 150-1 99 ----- HIGH RISK: >200 ----- Not Available [facility] (Lab) [address] [place], [address], 03/03/2024 14:06:10 03/03/20 24 03/03/2024 LIPID PANEL HDL cholesterol 53 mg/dL 40- Not Available [facility] (Lab) [address] [place], [address], 03/03/2024 14:06:10 03/03/20 24 03/03/2024 LIPID PANEL LDL cholesterol, calculated 114 mg/dL 0-130 NIH LILLI NSUS REPOR T RECOM MENDA TIONS FOR LDL: ADULT CHILD LOW RISK <130 <110 (OPTI MAL LDL) <100 ----- BORDE RLINE : 130-1 59 ----- HIGH RISK: >160 >130 A TRIGL YCERI DE RESUL T >400 INVAL IDATE S THE CALCU LATIO N FOR LDL FRACT IONAT ION - THE LDL RESUL T WILL NOT BE REPOR DANDY. Not Available [facility] (Lab) [address] [place], [address], 03/03/2024 14:06:10 03/03/20 24 03/03/2024 COMPR EHENS DAVID METAB OLIC PANEL sodium 135 mmol/ L 137-14 5 low Not Available [facility] (Lab) [address] [place], [address], 03/03/2024 14:06:17 03/03/20 24 03/03/2024 COMPR EHENS DAVID METAB OLIC PANEL potassium 4.5 mmol/ L 3.5-5. 1 Not Available [facility] (Lab) [address] [place], [address], 03/03/2024 14:06:17 03/03/20 24 03/03/2024 COMPR EHENS DAVID METAB OLIC PANEL chloride 101 mmol/ L 98-107 Not Available [facility] (Lab) [address] [place], [address], 03/03/2024 14:06:17 03/03/20 24 03/03/2024 COMPR EHENS DAVID METAB OLIC PANEL carbon dioxide 25 mmol/ L 22-30 Not Available [facility] (Lab) [address] [place], [address], 03/03/2024 14:06:17 03/03/20 24 03/03/2024 COMPR EHENS DAVID METAB OLIC PANEL anion gap 13.5 mmol/ L 14-22 low Not Available [facility] (Lab) [address] [place], [address], 03/03/2024 14:06:17 03/03/20 24 03/03/2024 COMPR EHENS DAVID METAB OLIC PANEL glucose 117 mg/dL 70-99 high Not Available [facility] (Lab) [address] [place], [address], 03/03/2024 14:06:17 03/03/20 24 03/03/2024 COMPR EHENS DAVID METAB OLIC PANEL BUN 18 mg/dL 8-19 Not Available [facility] (Lab) [address] [place], [address], 03/03/2024 14:06:17 03/03/20 24 03/03/2024 COMPR EHENS DAVID METAB OLIC PANEL creatinine 0.97 mg/dL 0.66-1 .25 Not Available [facility] (Lab) [address] [place], [address], 03/03/2024 14:06:17 03/03/20 24 03/03/2024 COMPR EHENS DAVID METAB OLIC PANEL GFR 56 Refer ence Range : [place] ge GFR Healt hy Adult : >60 mL/mi n/1.7 3 m2 Chron ic Kidne y Disea se: 15-60 mL/mi n/1.7 3 m2 Kidne y Failu re: <15/m L/min /1.73 m2 www.n iddk. nih.g ov The MDRD study equat ion has not been valid ated in child james <18 years of age; pregn ant women ; the elder ly >85 years of age; or in some racia l or ethni c subgr oups, such as Hispa nics. Outsi de the valid ated rodrigo eters , estim ated GFR is less accur ate, requi ring clini jigna judgm ent on a case- by-ca se basis . Clini jigna inter preta tion for other races and ages must be made by the clini natasha. The MDRD study equat ion has not been valid ated for the evalu ation of serum creat inine relat ed to nutri christy l statu s or medic ation usage . For perso ns <18 years of age, a pedia tric GFR calcu lator is avail able on the F websi te: https ://soraida w.jose elias essie.o rg/pr ofess ional s/kdo qi/gf r_cal culat or Not Available [facility] (Lab) [address] [place], [address], 03/03/2024 14:06:17 03/03/20 24 03/03/2024 COMPR EHENS DAVID METAB OLIC PANEL alkaline phosphatase 109 U/L 38-126 Not Available [facility] (Lab) [address] [place], [address], 03/03/2024 14:06:17 03/03/20 24 03/03/2024 COMPR EHENS DAVID METAB OLIC PANEL alanine aminotransfe rase 16 U/L 0-35 Not Available [facility] (Lab) [address] [place], [address], 03/03/2024 14:06:17 03/03/20 24 03/03/2024 COMPR EHENS DAVID METAB OLIC PANEL aspartate aminotransfe rase 25 U/L 15-37 Not Available [facility] (Lab) [address] [place], [address], 03/03/2024 14:06:17 03/03/20 24 03/03/2024 COMPR EHENS DAVID METAB OLIC PANEL bilirubin, total 0.60 mg/dL 0.20-1 .30 Not Available [facility] (Lab) [address] [place], [address], 03/03/2024 14:06:17 03/03/20 24 03/03/2024 COMPR EHENS DAVID METAB OLIC PANEL calcium 8.9 mg/dL 8.4-10 .2 Not Available [facility] (Lab) [address] [place], [address], 03/03/2024 14:06:17 03/03/20 24 03/03/2024 COMPR EHENS DAVID METAB OLIC PANEL total protein 7.4 g/dL 6.3-8. 2 Not Available [facility] (Lab) [address] [place], [address], 03/03/2024 14:06:17 03/03/20 24 03/03/2024 COMPR EHENS DAVID METAB OLIC PANEL albumin 4.0 g/dL 3.0-4. 4 Not Available [facility] (Lab) [address] [place], [address], 03/03/2024 14:06:17 03/03/20 24 03/03/2024 COMPR EHENS DAVID METAB OLIC PANEL globulin 3.4 g/dL 2.6-4. 2 Not Available [facility] (Lab) [address] [place], [address], 03/03/2024 14:06:17 03/03/20 24 03/03/2024 COMPR EHENS DAVID METAB OLIC PANEL A/G ratio 1.2 ratio 1.0-2. 0 Not Available [facility] (Lab) [address] [place], [address], 03/03/2024 14:06:17 03/03/20 24 03/03/2024 T4 FREE free T4 0.74 NG/dL 0.78-2 .19 low Not Available [facility] (Lab) [address] [place], [address], 03/03/2024 14:23:09 03/03/20 24 03/03/2024 VITAM IN D 25-HY DROXY vd25oh 43.3 NG/mL 30-100 Vitam in D Statu s: Defic ient: <20 ng/mL Insuf ficie nt: 20-29 ng/mL Suffi cient : 30-10 0 ng/mL Not Available [facility] (Lab) [address] [place], [address], 03/03/2024 14:23:19 03/03/20 24 03/03/2024 TSH thyroid-stim ulating hormone 7.050 uIU/m L 0.465- 4.680 high Not Available [facility] (Lab) [address] [place], [address], 03/03/2024 14:33:27 03/03/20 24 03/03/2024 MICRO ALBUM IN RANDO M URINE microalbumin , urine 36.0 mg/L 0.0-16 .6 high Not Available [facility] (Lab) [address] [place], [address], 03/03/2024 16:38:21 03/03/20 24 03/03/2024 HEMOG LOBIN A1C HA1C 6.6 % 4.0-6. 0 high Diabe shea Scree tiffany Crite filiberto: <5.7% Consi stent with absen ce of diabe shea 5.7-6 .4% Consi stent with incre ased risk for diabe shea (pred iabet es) >OR=6 .5% Consi stent with diabe shea REFER ENCE: Diabe shea Care 2016, 39(Bryant ppl.1 ):s13 -s22 Not Available [facility] (Lab) [address] [place], [address], 03/03/2024 20:46:49 03/12/20 23 03/12/2023 MAMMO , diagn ostic , tomos ynthe sis, bilat eral [facility] [address] [place] [address] [phone] Patien t Name: DAY, JEWEL Access ion #: [id number] Sex: F : 1949 5 Locati on: RAD Attend ing Physic alexus: BALA JANET UNIQUETrippJA Erickson Orderi ng Physic alexus: BALA GONZALES UNIQUETrippJA Erickson Exam Date: 8:43 AM Exam Name: MG BISHOP BREAST ASHLEE BILAT Admitt ing Diagno sis(es ): MAMMOG TRICE REPORT - FINAL EXAM: DIAGagandeep BREAST ASHLEE BILAT HISTOR Y: UNSPEC IFIED LUMP LT BREAST COMPAR MATTEO: None TECHNI QUE: Bilate ral CC and MLO views of the breast s were perfor med. Digita l Mammog trice images were obtain ed. CAD (compu ter assist ed detect ion) was utiliz ed. 3D Digita l breast tomosy nthesi s was perfor med and used in the interp retati on of images . FINDIN GS: The breast s are almost entire ly fatty. Right breast : No masses , asymme tries, suspic ious calcif icatio ns, or Page 1 of 2 [facility] t Name: SOFÍA BUENO ion #: [id number] Sex: F : 1949 4 Exam Date: 8:43 AM Exam Name: MG BISHOP BREAST ASHLEE BILAT Admitt ing Diagno sis(es ): penny ectura l distor tion are seen. Left breast : There is a 9 mm densit y within the mid supero latera l aspect of the left breast . IMPRES LEONEL: BIRADS 0: Assess ment incomp lete. Recomm end ultras ound of the mid supero latera l aspect of the left breast to evalua te a nodula r densit y. Create d and electr onical ly signed by: Grayson ponce MD Signed Date: 9:56 AM (CT) Dictat ed by: Grayson ponce MD DD: 9:56 AM (CT) DT: 9:56 AM (CT) Page 2 of 2 [email or web address] [facility] (Imaging) [address] [place] [address], [address], 03/27/2023 10:30:58 03/12/20 23 03/12/2023 MAMMO , diagn ostic , digit al, bilat eral No observ ation record ed. [email or web address] [facility] [address], [place], [address], 03/27/2023 10:30:58 03/12/20 23 03/12/2023 MAMMO , diagn ostic , digit al, unila teral [facility] [address] [facility] [address], [place] [address] [phone] Patiyovany t Name: [employer] ion #: [id number] Sex: F : 1949 4 Locati on: RAD Attend ing Physic alexus: TEVIN MARTELL Orderi ng Physic alexus: TEVIN MARTELL Exam Date: 9:24 AM Exam Name: US BREAST LIMITE D LT Admitt ing Diagno sis(es ): RADIOL OGY REPORT - FINAL EXAM: US BREAST LIMITE D LT HISTOR Y: left breast lump COMPAR MATTEO: Mammog trice 2022 TECHNI QUE: Focuse d ultras ound evalua tion of the left left breast was perfor med. FINDIN GS: 2 o'cloc k 2 cm deep to the nipple : There is a benign -appea ring lymph node measur ing 0.91 x 0.33 x 0.50 cm. IMPRES LEONEL: BI-RAD S 2: Benign findin gs. Examin ation comple te. Treatm ent of any palpab le abnorm ality should be treate d based upon clinic al unm cancer centereduard parada. Page 1 of 2 [facility] Vitaly t Name: [employer] ion #: [id number] Sex: F : 1949 5 Exam Date: 023 9:24 AM Exam Name: US BREAST LIMITE D LT Admitt ing Diagno sis(es ): Create d and electr onical ly signed by: Grayson ponce MD Signed Date: 3:01 PM (CT) Dictat ed by: Grayson ponce MD DD: 3:01 PM (CT) DT: 3:01 PM (CT) Page 2 of 2 [facility] (Imaging) [address] [place], [address], 04/02/2023 15:32:19 04/16/20 23 XR, knee, 3 view [facility] [address] [place] [address] Patien t Name: XIMENA, [place] [employer] Access ion #: [id number] Sex: F : 1949 2 Locati on: MO2 Attend ing Physic alexus: TEVIN MARTELL Orderi Physic alexus: TEVIN MARTELL Exam Date: 10:14 AM Exam Name: XR KNEE LT 3V Admitt ing Diagno sis(es ): RADIOL OGY REPORT - FINAL EXAM: XR KNEE LT 3V HISTOR Y: pain COMPAR MATTEO: None. TECHNI QUE: Three views of the left knee were perfor med. FINDIN GS: No eviden ce of a fractu re deform ity. Severe narrow ing of the medial femora l tibial joint compar tment with tricom partme ntal osteoa rthrit ic residu als. No eviden ce of a joint effusi on. IMPRES LEONEL: No acute proces s, see above. Page 1 of 2 [facility] Patien t Name: DAY, JEWEL Access ion #: [id number] Sex: F : 1949 2 Exam Date: 10:14 AM Exam Name: XR KNEE LT 3V Admitt ing Diagno sis(es ): Create d and electr onical ly signed by: Grayson ponce MD Signed Date: 1:31 PM (CT) Dictat ed by: Grayson ponce MD DD: 023 1:31 PM (CT) DT: 023 1:31 PM (CT) Page 2 of [address] (Imaging) [address] [place], [address], 05/01/2023 15:07:34 04/16/20 23 04/16/2023 XR, knee, 3 view No observ ation record ed. [address] (Radiology) [address] [place], [address], 04/17/2023 14:55:33 04/16/20 23 DEXA, axial skele ton [facility] [address] [place] [address] Patien t Name: SOFÍA BUENO Access ion #: [id number] Sex: F : 1949 2 Locati on: MO2 Attend ing Physic alexus: TEVIN MARTELL Orderi Physic alexus: TEVIN MARTELL Exam Date: 10:14 AM Exam Name: XR DEXA AXIAL/ HIP/PE LVIS/S PINE Admitt ing Diagno sis(es ): RADIOL OGY REPORT - FINAL EXAM: XR DEXA AXIAL/ HIP/PE LVIS/S PINE HISTOR Y: screen ing for osteop orosis COMPAR MATTEO: None. TECHNI QUE: TECHNI QUE: Dual energy x-ray of absorp tion examin ation of the bilate ral hips and lumbar spine in AP projec tion was perfor med. FINDIN GS: Lumbar Spine (L1-L4 ): The mean bone minera l densit y is 1.149 g/cm2 hydrox yapati te, correl ating with a T-scor e of -0.4. Bilate ral hips: The mean bone minera l densit y is 0.828 g/cm2 calciu m hydrox yapati te, correl ating with a T-scor e of -1.4. Page 1 of 2 [facility] Vitaly suarez Name: SOFÍA BUENO ion #: [id number] Sex: F : 1949 2 Exam Date: 10:14 AM Exam Name: XR DEXA AXIAL/ HIP/PE LVIS/S PINE Admitt ing Diagno sis(es ): IMPRES LEONEL: 1. The patien t's lumbar spine T-scor e is consis tent with a normal bone densit y. 2. The patien t's bilate ral hip T-scor e is consis tent with osteop enia. Accord ing to the [employer]i zation , T-scor e values greate r than -1.0 are normal , values betwee n -1.0 and -2.5 are catego rized as osteop enia, T-scor e of -2.5 or more are catego rized as osteop orosis . Create d and electr onical ly signed by: Grayson ponce MD Signed Date: 2:46 PM (CT) Dictat ed by: Grayson ponce MD DD: 2:46 PM (CT) DT: 2:46 PM (CT) Page [address] of [address] (Imaging) [address] [place], [address], 05/01/2023 15:07:34 04/16/20 23 04/16/2023 DEXA, axial skele ton No observ ation record ed. [address] (Radiology) [address] [place], [address], 04/17/2023 14:55:03 04/22/20 23 04/22/2023 XR, knee, 3 view [facility] [address] [place] [address] [phone] Pati t Name: SOFÍA BUENO Access ion #: [id number] Sex: F : 1949 2 Locati on: RAD Attend ing Physic alexus: TEVIN MARTELL A Orderi ng Physic alexus: TEVIN MARTELL A Exam Date: 9:33 AM Exam Name: XR KNEE LT 3V Admitt ing Diagno sis(es ): RADIOL OGY REPORT - FINAL EXAM: XR KNEE LT 3V HISTOR Y: PAIN LT KNEE COMPAR MATTEO: None. TECHNI QUE: Three views of the left knee were perfor med. FINDIN GS: No acute fractu re. Tricom partme ntal osteoa rthrit ic residu als, severe with signif icant medial and femora l tibial joint compar tment joint space narrow ing. No eviden ce of a joint effusi on. No eviden ce of a perios teal reacti on or malali gnment . The proxim al fibula is intact . IMPRES LEONEL: Page 1 of 2 [facility] t Name: SOFÍA BUENO Access ion #: [id number] Sex: F : 1949 2 Exam Date: 9:33 AM Exam Name: XR KNEE LT 3V Admitt ing Diagno sis(es ): Osteoa rthrit ic residu als, grade 4/4 utiliz ing the Ceci en Naya ce scale. Create d and electr onical ly signed by: Grayson ponce MD Signed Date: 9:58 AM (CT) Dictat ed by: Grayson ponce MD DD: 9:58 AM (CT) DT: 9:58 AM (CT) Page 2 of 2 [email or web address] [facility] (Imaging) [address] [place], [address], 04/08/2024 16:54:15 Result Notes None recorded. Problems Name Problem SNOMED Code Status Onset Date Resolution Date Notes Provider Name and Address Organization Details Recorded Time Chronic back pain 400889629 Completed 201604/03/2017 Not Available [facility] 3 02:53:10 Eruption 269994366 Active 2021 Not Available [facility] 3 02:53:10 Low back pain 740584175 Active Not Available [facility] 3 02:53:10 Unable to cut own toenails 416119153 Active 2021 Not Available [facility] 3 02:53:10 Type 2 diabetes mellitus without complicat ion 716176084 Active 2021 Not Available [facility] 3 02:53:10 Vitamin D deficienc y 85164486 Active 2022 Not Available [facility] 3 02:53:10 Hypothyro idism 21774130 Active 2022 Not Available [facility] 3 02:53:10 Itching of skin 026252725 Active 2021 Not Available [facility] 3 02:53:11 Seasonal allergy 158008478 Active 2022 Not Available [facility] 3 02:53:11 Erythema of vagina 08194205098 4103 Active 2021 Not Available [facility] 3 02:53:11 Lumbosacr al spondylos is without myelopath y 78482879 Active Not Available [facility] 3 02:53:11 Hip pain 68959331 Active Not Available [facility] 3 02:53:11 Hyperlipi demia 46724507 Active 2021 Not Available [facility] 3 02:53:11 Hemorrhoi ds 41552177 Active 2021 Not Available [facility] 3 02:53:11 Chronic kidney disease 331934584 Active 2022 Not Available [facility] 3 02:53:11 Diabetes mellitus 21667356 Active Not Available [facility] 3 02:53:11 Hyperglyc emia 48234881 Active 2021 Not Available [facility] 3 02:53:11 Serum protein above reference range 75399874 Active 2022 Not Available [facility] 3 02:53:11 Open wound, heel 698511903 Active 2022 Daria kraus, [place] [employer] [facility] [employer] [facility] 3 09:10:55 Unsteady when walking 17571424 Active 2022 Daria kraus, [employer] [facility] 3 09:27:28 Essential hypertens ion 11903313 Active 2022 Holland dillard MD [address], [place], [address] , [facility] 3 15:49:08 Gastroeso phageal reflux disease without esophagit is 242636539 Active 2022 Holland dillard MD [address], [place], [address] , [facility] 3 15:49:20 Neuropath y 806436288 Active 2022 Holland dillard MD [address], [place], [address] , [facility] [facility] 3 15:49:26 Chronic cough 91855449 Active 2022 Holland dillard MD [address], [place], [address] , [facility] 3 15:49:40 Mass of left breast [id number] 491840 Active 2022 Holland dillard MD [address], [place], [address] , [facility] 3 15:49:47 Seasonal allergic rhinitis 883269265 Active 2022 Holland dillard MD [address], [place], [address] , [facility] 3 15:49:58 Mammograp hy abnormal 949463866 Active 2022 Daria kraus, [facility] 3 12:01:10 Recurrent falls 974117146 Active 2022 Daria kraus, [facility] 3 16:59:26 Gout 01815022 Active 2022 Holland dillard MD [address], [place], [address] , [facility] 3 08:39:35 Pain of left knee joint 85246430628 4107 Active 2022 Holland dillard MD [address], [place], [address] , [facility] 3 10:52:05 Onychomyc osis of toenails 334591601 Active 2022 Holland dillard MD [address], [place], [address] , [facility] 3 10:52:36 Deep venous thrombosi s of lower extremity 306550333 Active 2022 Daria kraus, [facility] [place] [facility] 3 09:17:14 Vaginitis 66153810 Active 2022 Daria kraus, [facility] 3 13:46:12 Sensorine ural hearing loss 09829108 Active 2023 Holland dillard MD [address], [place], [address] , [facility] 4 11:46:26 Pain of right shoulder region Active 2024 MARU Gunderson null, [place] - [facility] [employer] 13:00:09 Problem Notes None recorded. Procedures Surgical History Date Name Laterality Status Provider Name and Address Organization Details Recorded Time 03/03/20 24 Medicare Wellness CPT Code, subsequent completed Chet Tavarez LPN [facility] [employer] [facility] 03/03/2024 14:28:44 05/05/20 17 Most Recent Bone Density completed Not Available [facility] 12/25/2022 02:47:44 03/12/20 16 Date of Last Colonoscopy completed Not Available [facility] 12/25/2022 02:47:44 Gallbladder Surgery completed Not Available [facility] 12/25/2022 02:47:46 Orthopedic Surgery completed Not Available [facility] 12/25/2022 02:47:46 Vascular Surgery completed Not Available [facility] 12/25/2022 02:47:46 Foot [facility] 12/25/2022 02:47:46 Orthopedic Surgery completed Not Available [facility] 12/25/2022 02:47:46 Imaging Results Imaging Date Name Status LastModified by [facility] Details LastModified Time 03/12/2023 MAMMO, diagnostic, tomosynthesis, bilateral completed [email or web address] [facility] (Imaging) [address] [place], [address], 03/27/2023 10:30:58 03/12/2023 MAMMO, diagnostic, digital, bilateral completed [email or web address] [facility] [address] [place], [address], 03/27/2023 10:30:58 03/12/2023 MAMMO, diagnostic, digital, unilateral completed [facility] (Imaging) [address] [place], [address], 04/02/2023 15:32:19 04/16/2023 XR, knee, 3 view completed [email or web address] [facility] (Imaging) [address] [place], [address], 05/01/2023 15:07:34 04/16/2023 XR, knee, 3 view completed [email or web address] [facility] (Radiology) [address] [place], [address], 04/17/2023 14:55:33 04/16/2023 DEXA, axial skeleton completed [email or web address] (Imaging) [address] [place], [address], 05/01/2023 15:07:34 04/16/2023 DEXA, axial skeleton completed [email or web address] [facility] (Radiology) [address] [place], [address], 04/17/2023 14:55:03 04/22/2023 XR, knee, 3 view completed [email or web address] [facility] (Imaging) [address] [place], [address], 04/08/2024 16:54:15 Procedure Notes None recorded. Medical Equipment None Reported. Allergies Allergen ID Allergen Name Allergen Category Reaction Reaction Severity Criticality Documentation Date Start Date Code Code System Note Provider Name and Address Organization Details Recorded Time 4779 Substance with sulfonami de structure and antibacte rial mechanism of action (substanc e) medicatio n rash Not available Not available 12/25/2022 40162 8003 SNOMED Not Available [facility] 3 03:02:31 4780 Product containin g penicilli n (product) medicatio n other Not available Not available 12/25/2022 34634 8001 SNOMED Unkno wn Not Available [facility] 3 03:02:31 4781 codeine medicatio n other Not available Not available 12/25/2022 2670 RxNorm Patie nt state d she can't swall ow these pills . Not Available [facility] 3 03:02:31 Medications Name Sig Start Date Stop Date Status Note LastModified by Organization Details LastModified Time losartan 50 mg tablet take one tablet by mouth once a day 01/11 completed As per pharmacy this is stopped Not Available Not Available Not Available cyclobenz aprine 10 mg tablet Take 1 tablet every day by oral route for 30 days. 04/12 completed Now on baclofen Not Available Not Available Not Available metformin 500 mg tablet TAKE 1 TABLET BY MOUTH TWICE A DAY 2022 active Not Available Not Available Not Avai lable atorvasta tin 80 mg tablet Take 1 tablet every day by oral route for 90 days. active Not Available Not Available No t Available pravastat in 40 mg tablet Take 1 tablet every day by oral route. 10/08 completed Not Available Not Available Not Available ibuprofen 800 mg tablet 3x a day 01/01 completed Not Available Not Available Not Available cephalexi n 250 mg capsule TAKE 1 CAPSULE BY MOUTH EVERY 6 HOURS FOR 7 DAYS active Not Available Not Available No t Available hydrocodo ne 5 mg-acetam inophen 325 mg tablet 05/08 completed Not Available Not Available Not Available sucralfat e 100 mg/mL oral suspensio n Take 10 mL every day by oral route as needed for 90 days. active Not Available Not Available No t Available meloxicam 15 mg tablet 10/16 completed Not Available Not Available Not Available sucralfat e 1 gram tablet TAKE 1 TABLET BY MOUTH ONCE DAILY NEEDED 12/18 completed Not Available Not Available Not Available ibuprofen 200 mg capsule Take 1 capsule every 6 hours by oral route as directed . 01/06 completed Not Available Not Available Not Available cephalexi n 250 mg tablet Take 1 tablet every 6 hours by oral route. 12/18 completed Not Available Not Available Not Available glipizide ER 5 mg tablet, extended release 24 hr Take 1 tablet every day by oral route for 90 days. 05/22 completed Not Available Not Available Not Available clindamyc in HCl 150 mg capsule 06/04 completed Not Available Not Available Not Available allopurin ol 100 mg tablet Take 1 tablet every day by oral route for 90 days. active Not Available Not Available No t Available omeprazol e 40 mg capsule,d elayed release TAKE ONE CAPSULE BY MOUTH EVERY DAY 01/06 completed Not Available Not Available Not Available tramadol 50 mg tablet TAKE 1 TABLET BY MOUTH ONCE DAILY NEEDED active Not Available Not Available No t Available triamcino lone acetonide 0.1 % topical cream APPLY A THIN LAYER TO THE AFFECTED AREA(S) BY TOPICAL ROUTE 2 TIMES PER DAY active Not Available Not Available No t Available levothyro xine 25 mcg tablet Take 1 tablet by oral route. 01/29 completed Not Available Not Available Not Available levothyro xine 75 mcg tablet TAKE 1 TABLET BY MOUTH ONCE DAILY 05/22 completed Not Available Not Available Not Available levothyro xine 100 mcg tablet TAKE 1 TABLET BY MOUTH EVERY DAY IN THE MORNING active Not Available Not Available No t Available potassium chloride ER 20 mEq tablet,ex tended release(p art/cryst ) TAKE 2 TABLETS BY MOUTH ONCE DAILY 12/06 completed Not Available Not Available Not Available pravastat in 80 mg tablet Take 1 tablet every day by oral route. 01/11 completed Not Available Not Available Not Available dicyclomi ne 20 mg tablet TAKE 1 TABLET BY MOUTH 3 TIMES A DAY active Not Available Not Available No t Available benzonata te 100 mg capsule TAKE ONE CAPSULE BY MOUTH TWICE A DAY NEEDED active see 10/16 ov note Not Available Not Available Not Available levothyro xine 50 mcg tablet Take 1 tablet every day by oral route for 30 days. active Not Available Not Available No t Available levothyro xine 125 mcg tablet TAKE 1 TABLET BY MOUTH EVERY DAY 01/22 completed Not Available Not Available Not Available olopatadi ne 0.1 % eye drops Instill 1 drop twice a day by ophthalm ic route as needed. active Not Available Not Available No t Available lisinopri l 10 mg tablet TAKE 1 TABLET BY MOUTH EVERY DAY active Not Available Not Available No t Available levothyro xine 150 mcg tablet TAKE 1 TABLET IN THE MORNING ON AN EMPTY STOMACH. active Not Available Not Available No t Available hydrochlo rothiazid e 12.5 mg capsule 10/16 completed Not Available Not Available Not Available nystatin- triamcino lone 100,000 unit/g-0. 1 % topical cream APPLY TO AFFECTED AREA TWICE A DAY IN THE MORNING AND IN THE EVENING active Not Available Not Available No t Available gabapenti n 300 mg capsule Take 1 capsule 3 times a day by oral route. 01/[address] Damon Not Available Not Available Not Available omeprazol e 20 mg capsule,d elayed release TAKE 1 CAPSULE BY MOUTH EVERY DAY NEEDED active Not Available Not Available No t Available Pain Relief Regular Strength 325 mg tablet Take 2 tablets every 6 hours by oral route as needed. 2019 active Not Available Not Available Not Avai lable ergocalci ferol (vitamin D2) 1,250 mcg (50,000 unit) capsule Take 1 capsule every week by oral route. 05/22 completed Not Available Not Available Not Available levofloxa rojelio 750 mg tablet Take 1 tablet every day by oral route for 7 days. 01/01 completed Not Available Not Available Not Available methylpre dnisolone 4 mg tablets in a dose pack TAKE 6 TABLETS ON DAY 1 DIRECTED ON PACKAGE AND DECREASE BY 1 TAB EACH DAY FOR A TOTAL OF 6 DAYS 12/18 completed Not Available Not Available Not Available ketoconaz ole 2 % topical cream APPLY TO FEET DAILY NEEDED active Not Available Not Available No t Available fluticaso ne propionat e 50 mcg/actua tion nasal spray,rebecca [employer] 1 spray every day by intranas al route for 30 days. 02/26 completed Not Available Not Available Not Available loratadin e 10 mg tablet TAKE 1 TABLET BY MOUTH EVERY DAY 06/04 completed Not Available Not Available Not Available Ventolin HFA 90 mcg/actua tion aerosol inhaler 12/06 completed Not Available Not Available Not Available ezetimibe 10 mg tablet Take 1 tablet every day by oral route. 10/08 completed Not Available Not Available Not Available rosuvasta tin 20 mg tablet TAKE 1 TABLET BY MOUTH EVERY DAY active Not Available Not Available No t Available rosuvasta tin 40 mg tablet TAKE 2 TABLET BY MOUTH EVERY DAY 01/22 completed Not Available Not Available Not Available Glipizide XL 5 mg tablet,ex tended release Take 1 tablet every day by oral route. 12/18 completed Not Available Not Available Not Available nitrofura ntoin monohydra te/macroc rystals 100 mg capsule TAKE 1 CAPSULE BY MOUTH EVERY 12 HOURS FOR 10 DAYS active Not Available Not Available No t Available capsaicin 0.1 % topical cream Apply to feet up to three times daily as needed for pain 01/02 completed Not Available Not Available Not Available fenofibra te nanocryst allized 48 mg tablet Take 1 tablet every day by oral route for 90 days. 2022 active Not Available Not Available Not Avai lable Eye Allergy Relief (naphazol ine-pheni ramine) 0.96878 %-0.315 % drops Apply 1-2 drops into both eyes up to 4 times daily PRN 2019 active Not Available Not Available Not Avai lable Artificia l Tears (glycerin -peg) 1 %-0.3 % eye drops Apply 2 drops twice a day by ophthalm ic route for 30 days. active Not Available Not Available No t Available Xarelto 15 mg tablet TAKE 1 TABLET BY MOUTH TWICE A DAY FOR 21 DAYS active Not Available Not Available No t Available Vascepa 1 gram capsule TAKE 2 CAPSULES BY MOUTH TWICE A DAY 12/18 completed Not Available Not Available Not Available cefixime 400 mg capsule 12/06 completed Not Available Not Available Not Available potassium chloride ER 20 mEq tablet,ex tended release Take 2 tablets every day by oral route. 05/24 completed Not Available Not Available Not Available baclofen 5 mg tablet TAKE 1 TABLET BY MOUTH TWICE DAILY, NO ALCOHOL OR DRIVING WHILE TAKING MEDICATI ON active Not Available Not Available No t Available OneTouch Ultra2 Meter USE TO TEST BLOOD GLUCOSE DAILY DX E11.9 active Not Available Not Available No t Available Fluzone High-Dose Quad (PF) 240 mcg/0.7 mL IM syringe 01/22 completed Not Available Not Available Not Available Vitals Date Recorded Body height Body temperature Heart rate Systolic blood pressure Diastolic blood pressure Provider Name and Address Organization Details Last Updated DateTime 04/16/2023 160.02 cm 97.2 [degF] 84 /min 152 mm[Hg] 88 mm[Hg] [facility] [place] [employer] 3 10:34:20 Date Recorded Body height Body temperature Heart rate Systolic blood pressure Diastolic blood pressure Provider Name and Address Organization Details Last Updated DateTime 03/03/2024 160.02 cm 97.6 [degF] 84 /min 140 mm[Hg] 84 mm[Hg] Lydia Maharaj Erickson [place] [employer] [place] [employer] 4 11:10:51 Date Recorded Pain severity - 0-10 verbal numeric rating [Score] - Reported Provider Name and Address Organization Details Last Updated DateTime 03/03/2024 0 Chet Tavarez LPN [facility] [employer] 03/03/2024 14:29:04 Date Recorded Body height Provider Name an d Address Organization Details Last Updated DateTime 06/13/2022 160.02 cm Not Available [facility] 3 02:48:59 Date Recorded Body height Pain severity - 0-10 verbal numeric rating [Score] - Reported Heart rate Body temperature Systolic blood pressure Diastolic blood pressure Provider Name and Address Organization Details Last Updated DateTime 3 160.02 cm 5 78 /min 97.8 [degF] 156 mm[Hg] 88 mm[Hg] Not Available [facility] 3 02:48:58 Social History Question Answer Notes LastModified by Organizat ion Details LastModified Time Tobacco Smoking Status Never Smoker Not Available [facility] 12/25/2022 02:34:05 Do You Have An Advance Directive? No [id number] Information not available 12/25/2022 What Is Your Level Of Alcohol Consumption? None MIGRATION.31448 [id number] Information not available 12/25/2022 Are You Blind Or Do You Have Difficulty Seeing? No MIGRATION.48354 93119 Information not available 12/25/2022 What Is Your Level Of Caffeine Consumption? Occasional [email or web address] Information not available 03/03/2024 In The 14 Days Before Symptom Onset, Have You Had Close Contact With A Laboratory-confir med COVID-19 While That Case Was Ill? No MIGRATION.[id number] Information not available 12/25/2022 In The 14 Days Before Symptom Onset, Have You Had Close Contact With A Person Who Is Under Investigation For COVID-19 While That Person Was Ill? No MIGRATION.18862 [id number] Information not available 12/25/2022 Are You Currently Employed? No [email or web address] Information not available 03/03/2024 Are You Deaf Or Do You Have Serious Difficulty Hearing? Yes Has Hearing Aids, Does Not Wear Them [email or web address] Information not available 03/03/2024 What Type Of Diet Are You Following? REGULAR MIGRATION.90106 74649 Information not available 12/25/2022 Which Illicit Or Recreational Drugs Have You Used? None MIGRATION.18117 83727 Information not available 12/25/2022 Do You Or Have You Ever Used E-cigarettes Or Vape? Never Used Electronic Cigarettes MIGRATION.66007 [id number] Information not available 12/25/2022 What Is The Highest Grade Or Level Of School You Have Completed Or The Highest Degree You Have Received? [id number] [email or web address] Information not available 03/03/2024 Have There Been Any Changes To Your Family Or Social Situation? No MIGRATION.17949 73661 Information not available 12/25/2022 What Is The Fluoride Status Of Your Home? Unknown MIGRATION.60780 92551 Information not available 12/25/2022 Are There Any Guns Present In Your Home? No MIGRATION.73109 38133 Information not available 12/25/2022 Do You Use Insect Repellent Routinely? No MIGRATION.75295 07636 Information not available 12/25/2022 Where Do You Live? Apartment MIGRATION.83396 64454 Information not available 12/25/2022 Presence Of Domestic Violence No Information no t available 03/03/2024 Guns Present In The Home? No [email or web address] Information not available 03/03/2024 Are You Able To Care For Yourself? Yes Information not available 03/03/2024 Are You Blind Or Do Yo Have Difficulty Seeing? No [email or web address] Information not available 03/03/2024 Are You Deaf Or Do You Have Serious Difficulty Hearing? Yes [email or web address] Information not available 03/03/2024 General Stress Level? Low [email or web address] Information not available 03/03/2024 Live Alone Of With Others? Alone [email or web address] Information not available 03/03/2024 Do You Have A Medical Power Of Grain Elevator Agent? No MIGRATION.65514 24178 Information not available 12/25/2022 What Was The Date Of Your Most Recent Tobacco Screening? 03/03/2024 Information not available 03/03/2024 Do You Have Any Pets? No MIGRATION.00114 23303 Information not available 12/25/2022 What Is Your Relationship Status? Single MIGRATION.55231 45905 Information not available 12/25/2022 Do You Use Your Seat Belt Or Car Seat Routinely? Yes [email or web address] Information not available 03/03/2024 Do You Have Smoke And Carbon Monoxide Detectors In Your Home? Yes MIGRATION.24051 16512 Information not available 12/25/2022 Are You Passively Exposed To Smoke? No MIGRATION.44628 33522 Information not available 12/25/2022 Do You Or Have You Ever Used Smokeless Tobacco? Never Used Smokeless Tobacco MIGRATION.44160 04689 Information not available 12/25/2022 Are There Any Smokers In Your House? No MIGRATION.68121 99742 Information not available 12/25/2022 How Much Tobacco Do You Smoke? No MIGRATION.26319 18354 Information not available 12/25/2022 Do You Feel Stressed (tense, Restless, Nervous, Or Anxious, Or Unable To Sleep At Night)? [id number] MIGRATION.16521 39876 Information not available 12/25/2022 Do You Use Any Illicit Or Recreational Drugs? No MIGRATION.20646 54616 Information not available 12/25/2022 Do You Use Sunscreen Routinely? No MIGRATION.92129 34072 Information not available 12/25/2022 Has Tobacco Cessation Counseling Been Provided? No N/a MIGRATION.00270 69355 Information not available 12/25/2022 How Many Years Have You Smoked Tobacco? 0 MIGRATION.33010 21699 Information not available 12/25/2022 Have You Recently Traveled Abroad? No MIGRATION.36877 52875 Information not available 12/25/2022 Do You Have Any Dietary Restrictions? No MIGRATION.93778 87978 Information not available 12/25/2022 Do You Or Have You Ever Used Any Other Forms Of Tobacco Or Nicotine? No MIGRATION.56674 90172 Information not available 12/25/2022 Sex: Unknown Functional Status Question Answer Note LastModified by Organizat ion Details LastModified Time Do you have difficulty walking or climbing stairs? Yes has elec wheelchair MIGRATION.34220 09311 Information not available 12/25/2022 Do you have transportation difficulties? Yes [email or web address] Information not available 03/03/2024 Are you able to walk? NOINDWHEEL MIGRATION.87012 33683 Information not available 12/25/2022 Do you have difficulty doing errands alone? Yes [email or web address] Information not available 03/03/2024 Are you able to care for yourself? Yes [email or web address] Information not available 03/03/2024 Do you have difficulty dressing or bathing? No MIGRATION.16601 84235 Information not available 12/25/2022 What is your exercise level? None MIGRATION.36955 96424 Information not available 12/25/2022 Mental Status Question Answer Note LastModified by Organizat ion Details LastModified Time Do you have difficulty concentrating, remembering or making decisions? No MIGRATION.[id number] Information not available 12/25/2022 Family History Relationship Description Onset Age of this Age Resolved Age Notes LastModified by Organization Details LastModified Time Maternal Grandmother Diabetes mellitus [id number] Not available 12/25/2022 02:47:48 Brother Suspected brain tumor MIGRATION.[id number] Not available 12/25/2022 02:47:48 Mother Heart disease MIGRATION.106 [id number] Not available 12/25/2022 02:47:48 Medical History Condition Response GERD/NAUSEA Y HYPOTHYROIDISM Y DIABETES, TYPE Y GOUT Y BACK / NECK PROBLEMS Y HEARTBURN / REFLUX Y HYPERTENSION Y HIGH CHOLESTEROL / HYPERLIPIDEMIA Y Gynecological History Statement/Question Response Date of Last Pap Date of Last Mammogram Date of Last Colonoscopy 03/12/2016 Most Recent Bone Density 05/05/2017 Obstetrics History GPAL:G 0 P 0 0 0 0 Immunizations Vaccine Type Date Status Note Provider Nam e and Address Organization Details Recorded Time Influenza, high-dose, quadrivalent, PF 11/29/2020 completed Not Available [facility] 3 03:02:15 Influenza, high-dose, quadrivalent, PF 08/13/2021 completed Not Available [facility] 3 03:02:16 Past Encounters Encounter ID Performer Location Encounter Start Date Encounter Closed Date Diagnosis/Indication Diagnosis SNOMED-CT Code Diagnosis ICD10 Code Diagnosis Note [id number] [facility] [address] 01/22/2021 00:00:00 03/28/2021 12:04:25 [id number] [facility] [address] 05/14/2021 00:00:00 05/16/2021 09:45:14 [id number] [facility] [address] 05/30/2021 00:00:00 05/30/2021 18:37:28 [id number] _ATHENA_M IGRATION_ DEFAULT_1 _1 , 06/22/2021 00:00:00 06/26/2021 12:12:47 [id number] [facility] [place] [address] 08/13/2021 00:00:00 08/13/2021 12:51:31 [id number] [facility] [place] [address] [place] [address] 11/08/2021 00:00:00 11/12/2021 09:15:07 [id number] [facility] Internal Med Ary phel[place] [address] [place] [address] [place] [address] 02/20/2022 00:00:00 02/20/2022 14:07:40 [id number] [facility] [place] [address] [place] [address] 06/13/2022 00:00:00 06/16/2022 15:01:59 [id number] [facility] Internal [facility] Ary phelps [address] [place] [address] [place] [address] 12/18/2022 00:00:00 12/18/2022 16:17:43 [id number] Holland dillard MD [facility] Internal [address] [place] [address] 04/16/2023 10:24:13 04/16/2023 10:57:10 Screening - [facility] [id number] Z13.9 C-scope: 03/12/2016 : Dr Hale, next in 10 years Mammogram: Refused 01/11/19, 09/25/2020 , 01/22/2021 , now has lump on the L breast, get diagnostic L breast mammogram She has not wanted ANY mammograms and has again refused today 08/13/2021 Mammogram: 03/12/2023 : Birads 0, US L breast Neg PAP: Not wanting this 11/02/18, 09/25/2020 , 01/22/2021 States she does not want any of this testing done!, understand s the risks 12/18/2022 DEXA: Get this Get flu shotGet TdapGet pneumovaxG et COVID 19 vaccine informatio n given to her where to get this done, follow all CDC guidelines RTC in 4 monthsDo labsER if worse with any life threatenin g illness or symptomssh e did verbalize her understand ing of the above Essential hypertension [id number] I10 On lisinopril 10mg dailyGet labs Hyperlipidemia 45989883 E78.5 On atorvastat in 80mg dailyOn fenofibrat e 48mg daily Not on Vascepa 1gm 2 tabs bid, states that she 'cannot pay' for this Get labs Type 2 sania betes mellitus without complication 960350801 E11.9 Off glipizide XL 5mg dailyOn metformin 500mg po bid Get labsShe is to see eye MD Dr Fuentes but she states that Dr Fuentes 'quit on me', will getDr Rammacher lastt OV 06/22, next apt 09/28/2021 Gout 66087990 M10.9 Does wellNot on any meds at this time Gastroesop hageal reflux disease without esophagitis 473981101 K21.9 EGD: 10/29/17: Dr Jim, hiatal hernia, gastritisE GD 01/22/19 Dr Jim Barretts esophagus and repeat in one yearEGD 11/16/2021 : Dr Jim: Erosive esophagiti s On dicyclomin e, given by Dr Diandra Do omeprazole , advised to take PRNOn sucralfate Get another EGD doneReferr al was provided on the OV on 09/25/2020 , referred again 05/14/2021 On omeprazole Neuropathy 332498163 G62 [address] Damon Not taking gabapentin Low back pain 766597037 M54.50 In wheelchair Is able to do all her ADL and IADLs Get PT as per her request today Hypothyroidism 68583397 E03.9 On levothyrox ine 150mcgs dailyGet labs Chronic cough 20352588 R 05.3 Get an apt with Dr Medina, this was provided to her last OV also Seasonal a llergic rhinitis 290379361 J30.2 On olaptidine eye drops Screening for osteoporosis 113474256 Z13.820 Pain of le ft knee joint [id number] 15943 M25.562 Onychomyco sis of toenails 948398928 B35.1 Get a referral to podiatry Unsteady when walking 22 366469 R26.89 Does have a wheel chair, can do a walker rollater [id number] Holland dillard MD [facility] Internal Med Ary [place] [address] [facility] , [place] [address] 03/03/2024 10:53:42 03/03/2024 12:02:55 Screening - NAD [id number] Z13.9 C-scope: 03/12/2016 : Dr Hale, next in 10 years Mammogram: Refused 01/11/19, 09/25/2020 , 01/22/2021 , now has lump on the L breast, get diagnostic L breast mammogram She has not wanted ANY mammograms and has again refused today 08/13/2021 Mammogram: 03/12/2023 : Birads 0, US L breast Neg PAP: Not wanting this 11/02/18, 09/25/2020 , 01/22/2021 States she does not want any of this testing done!, understand s the risks 12/18/2022 , 03/03/2024 DEXA: Get this, has refused 03/03/2024 , verbalizes her understand ing of the risks Get flu shotGet TdapGet pneumovaxG et COVID 19 vaccine informatio n given to her where to get this done, follow all CDC guidelines Can do RSV vaccine RTC in 4 monthsDo labsER if worse with any life threatenin g illness or symptomssh e did verbalize her understand ing of the above Essential hypertension 14064562 I10 On lisinopril 10mg dailyGet labs Hyperlipidemia 79894147 E78.5 On atorvastat in 80mg dailyOn fenofibrat e 48mg daily Not on Vascepa 1gm 2 tabs bid, states that she 'cannot pay' for this Get labs Type 2 sania betes mellitus without complication 479018338 E11.9 Off glipizide XL 5mg dailyOn metformin 500mg po bid Get labsShe is to see eye MD Dr Fuentes but she states that Dr Fuentes 'quit on me', will getDr Rammacher last OV 06/22, next apt 09/28/2021 Gout 82302431 M10.9 Does wellNot on any meds at this time Gastroesop hageal reflux disease without esophagitis 307173981 K21.9 EGD: 10/29/17: Dr Jim, hiatal hernia, gastritisE GD 01/22/19 Dr Jim Barretts esophagus and repeat in one yearEGD 11/16/2021 : Dr Jim: Erosive esophagiti s On dicyclomin e, given by Dr Diandra Do omeprazole , advised to take PRNOn sucralfate Get another EGD doneReferr al was provided on the OV on 09/25/2020 , referred again 05/14/2021 On omeprazole Neuropathy 685783746 G62 .[address] Damon Not taking gabapentin Low back pain 331445874 M54.50 In wheelchair Is able to do all her ADL and IADLs Get PT Hypothyroidism 66741020 E03.9 On levothyrox ine 150mcgs dailyGet labs Chronic cough 16584196 R 05.[address] with Dr Medina, this was provided to her last OV also Seasonal a llergic rhinitis 976971229 J30.2 On olaptidine eye drops Screening for osteoporosis 200360937 Z13.820 Onychomyco sis of toenails 184666367 B35.1 Get a referral to podiatry Unsteady when walking 22 596341 R26.89 Does have a wheel chair, can do a walker rollater Noncomplia nce with treatment 9757015 Z91.199 She should require 24 hour care and should have reliable transporta tion for her visits, labs and all her referrals Sensorineu ral hearing loss 29345839 H90.5 Adult heal th examination 049418670 Z00.00 Screening for disorder 991982293 Z13.9 Health Concerns Section Related Observation LastModified by Organization Detai ls LastModified Time None Recorded Concern Status LastModified by Organization Details LastModified Time None Recorded Advance Directives Directive N: Payers Encounter Date Sequence Insurance Name Policy Number Policy Alegria Covered Member ID Alegria Member ID Guarantor Name 04/16/2023 1 [facility] (MEDICARE REPLACEMENT/A DVANTAGE - PPO) [id number] 04/16/2023 2 [place] [facility] [id number] 03/03/2024 1 [facility] (MEDICARE REPLACEMENT/A DVANTAGE - PPO) [id number] 03/03/2024 2 [place] [employer] [facility] [facility] [employer] [id number] Notes Date Note Type Note Provider Name and Address Organization Details Recorded Time 04/16/2023 text/html Past Hx:HTNGERDOA?[place] wed her past social, family and surgical history, but this is very sketchy as she does not recall many details.She continues to be a very poor historian is here by herself, she lives by herself.She does not drive at this time.She is doing well otherwise and is here to discuss her HCTZ and the meloxicam. She states that she is not taking the HCTZ as she feels that the leg swelling is 'gone'.She will do all her 'testing' in [facility] not [place].She continues to have some pain in LS Spine and R hip. She states that the tramadol does help, she has declined any PT or home health. OV: 10/07/17:ACV:Here with sinusitis with cough since about a week, +ve productive cough with no blood in sputum, +ve sinus headaches, no chest pain or SOB, she is in a wheelchairNo N/V or diarrhea, no blood in urine or stoolNo headaches, no dizzinessNo rashNo joint pain, but has some LBP, that is chronic OV 10/16/17:She is here for her lab review, she states that she did the labs todayWas treated 2 weeks ago for URI and feels that the cough is not getting betterHas coughing 'fits'Has pain in the chest with the coughingShe also has 'belching' and wants to get a 'scope' OV 01/06/18:Here for her routine aptShe did do the labs but not all of them, just the lipid and CMPShe feels that she has cold feet and would like to discuss that OV 02/26/18:Here for her routine follow up, but just recently seenNo new compaints todayMarkmejia did do the labs on 02/23/18 and is here to review these OV 06/04/18:Here for her routine aptShe states that she is doing well at this timeHer last labs were on 04/15/18he did also see Dr Damon on 05/04/18 and there are no more apts at this time OV 08/03/18:Here for an ACV:She is here for a rash since about a week or more, she states that she did not seek attention immediately as she was 'busy with her classes'She has severe pain specially when she put pressure on the L buttock, no fevers or chills, no N/VShe has not seen any bleeding or d/c from the rash OV 11/02/18:Here for her routine aptShe feels that she is doing wellC/o LBP, no N/T in the legs or weakness but she states that she uses a wheelchairNo loss of bowel or bladder controlWants 'muscle relaxer', she does not want to go to the pain management, as she does not like the 'shots' they give her OV 01/11/19:She is here for her wheelchair evalShe did do the labs alsoShe states that she needs to look at a sore at the 'rectum' OV 04/12/19:Here for her routine aptNo recent labs at this timeShe states that she has a rash and would like to check this out OV 05/24/19:Here to discuss her EGD and that she is now on baclofen also she did do the labs and is here to discuss thoseShe states that she was in the ER and was told she had a UTI now is on macrobidShe also has see Dr Damon the neurologist OV 07/07/19:Here with ACV:Very poor historian today, cannot hear well as she does not have her hearing aidsHere with URI sxC/o cough constant, with minimal sputumAlso has nausea and vomitingNo fevers or chillsNo chest pain OV 05/22/2020:Here for her routine aptShe has missed her apts with officeToday she states that she has GERD and is 'belching', but over all she is doing 'great'No recent labs done OV 09/25/2020:Here for her routine aptShe feels Soraidahe was in the ER and was given an antibiotic for a UTI, did not take the full course, but denies any complaints today, she has not done her labsShe does need an apt with neurology but cannot get a ride to [place] OV 01/22/2021:Here for her routine aptShe feels Cj has done labs on 11/03/2020 and is here to review theseShe states that she has scheduled for cataract surgery, this is to be done by Dr Fuentes OV 05/14/2021:Here for her routine aptShe did miss some of her f/u aptsSdian has noted a slight cough, no fevers or chills, non productive, no wheezingNo chest pain or SOBShe has also noted a L breast lump, non tender, feels it is getting betterShe has done her labsShe is here for her MWV also OV 05/30/2021:ACV:C/o LUQ pain since at least 10 daysNo relationship with eatingCrampy sometimes sharpNone todayNo N/V or diarrhea, no UTI sx, no blood in stool or urineAlso c/o radha eye irritation, feels that the dry weather and also waiting at the bus stop when other are smoking irritates her eyes OV 08/13/2021:Here for her routine aptShe is doing Cj has no new labs since 05/08/2021 OV 02/20/2022:ACV:Her e for a R buttock pain, feels that she has a 'bump', it does hurt her too especially when she sitsNo trauma, no fevers or chillsNo bleeding noted OV 12/18/2022:Here for her f/u apt, she feels well, does want to do PT to 'get moving' and also wants to get an director of special education referral, no recent labs OV 04/16/2023: Here for her f/u apt, she has not yet done her labs, states that she does has been non compliant with her labs, does c/o knee pain in the L, no trauma, hurts to bend the knee Holland Degroot MD [address] [facility], [facility] [[email or web address]] [address], [place], [address], [facility] [employer] 04/17/2023 13:51:03 03/03/2024 text/html Past Hx:HTNGERDOA?[place] wed her past social, family and surgical history, but this is very sketchy as she does not recall many details. She continues to be a very poor historian is here by herself, she lives by herself.She does not drive at this time.She is doing well otherwise and is here to discuss her HCTZ and the meloxicam. She states that she is not taking the HCTZ as she feels that the leg swelling is 'gone'.She will do all her 'testing' in [facility] not [place].She continues to have some pain in LS Spine and R hip. She states that the tramadol does help, she has declined any PT or home health.OV: 10/07/17:ACV:Here with sinusitis with cough since about a week, +ve productive cough with no blood in sputum, +ve sinus headaches, no chest pain or SOB, she is in a wheelchairNo N/V or diarrhea, no blood in urine or stoolNo headaches, no dizzinessNo rashNo joint pain, but has some LBP, that is chronicOV 10/16/17:She is here for her lab review, she states that she did the labs todayWas treated 2 weeks ago for URI and feels that the cough is not getting betterHas coughing 'fits'Has pain in the chest with the coughingShe also has 'belching' and wants to get a 'scope'OV 01/06/18:Here for her routine aptShe did do the labs but not all of them, just the lipid and CMPShe feels that she has cold feet and would like to discuss thatOV 02/26/18:Here for her routine follow up, but just recently seenNo new compaints todayMarkmejia did do the labs on 02/23/18 and is here to review theseOV 06/04/18:Here for her routine aptShe states that she is doing well at this timeHer last labs were on 04/15/18he did also see Dr Damon on 05/04/18 and there are no more apts at this timeOV 08/03/18:Here for an ACV:She is here for a rash since about a week or more, she states that she did not seek attention immediately as she was 'busy with her classes'She has severe pain specially when she put pressure on the L buttock, no fevers or chills, no N/VShe has not seen any bleeding or d/c from the rash OV 11/02/18:Here for her routine aptShe feels that she is doing wellC/o LBP, no N/T in the legs or weakness but she states that she uses a wheelchairNo loss of bowel or bladder controlWants 'muscle relaxer', she does not want to go to the pain management, as she does not like the 'shots' they give herOV 01/11/19:She is here for her wheelchair evalShe did do the labs alsoShe states that she needs to look at a sore at the 'rectum' OV 04/12/19:Here for her routine aptNo recent labs at this timeShe states that she has a rash and would like to check this outOV 05/24/19:Here to discuss her EGD and that she is now on baclofen also she did do the labs and is here to discuss thoseShe states that she was in the ER and was told she had a UTI now is on macrobidShe also has see Dr Damon the neurologist OV 07/07/19:Here with ACV:Very poor historian today, cannot hear well as she does not have her hearing aidsHere with URI sxC/o cough constant, with minimal sputumAlso has nausea and vomitingNo fevers or chillsNo chest painOV 05/22/2020:Here for her routine aptShe has missed her apts with officeToday she states that she has GERD and is 'belching', but over all she is doing 'great'No recent labs doneOV 09/25/2020:Here for her routine aptShe hal Corona was in the ER and was given an antibiotic for a UTI, did not take the full course, but denies any complaints today, she has not done her labsShe does need an apt with neurology but cannot get a ride to [place] OV 01/22/2021:Here for her routine aptShe hal Corona has done labs on 11/03/2020 and is here to review theseShe states that she has scheduled for cataract surgery, this is to be done by Dr FuentesOV 05/14/2021:Here for her routine aptShe did miss some of her f/u aptsShe has noted a slight cough, no fevers or chills, non productive, no wheezingNo chest pain or SOBShe has also noted a L breast lump, non tender, feels it is getting betterShe has done her labsShe is here for her MWV also OV 05/30/2021:ACV:C/o LUQ pain since at least 10 daysNo relationship with eatingCrampy sometimes sharpNone todayNo N/V or diarrhea, no UTI sx, no blood in stool or urineAlso c/o radha eye irritation, feels that the dry weather and also waiting at the bus stop when other are smoking irritates her eyesOV 08/13/2021:Here for her routine aptShe is doing wellShe has no new labs since 05/08/2021OV 02/20/2022:ACV:Her e for a R buttock pain, feels that she has a 'bump', it does hurt her too especially when she sitsNo trauma, no fevers or chillsNo bleeding notedOV 12/18/2022:Here for her f/u apt, she feels well, does want to do PT to 'get moving' and also wants to get an director of special education referral, no recent labs OV 04/16/2023: Here for her f/u apt, she has not yet done her labs, states that she does has been non compliant with her labs, does c/o knee pain in the L, no trauma, hurts to bend the knee OV 03/03/2024: Here for her f/u apt and MWV, she has been non compliant with her visits and also with her medications, she has no new labs, she would like to get a referral for her hearing aids Holland Degroot MD [address] [place] [address], [facility] [[email or web address]] [address], [place], [address], [place] [employer] 03/03/2024 17:52:54 OBGyn Episode No OBEpisode recorded.
--- OUTSIDE RECORDS SUMMARY | 2025-02-15 07:20 | XMS_ITS | CONTINUITY OF CARE DOCUMENT ---
Author Name jose libethjose libeth Address Unknown Organization [facility] Address [address] [place] [address] Phone [phone] Care Team Providers Care Line Rider Name Role Phone Danay AGOSTO, Antione Unavailable [phone] HOLLAND CHAVEZ MD Unavailable HOLLAND CHAVEZ MD Unavailable PROBLEMS Condition Status Date Provider Notes Chest pain active Mj Watkins MD HTN essential active Mj Watkins MD Hypothyroidism active Mj Watkins MD Hyperlipidemia active Mj Watkins MD GERD active Mj Watkins MD Osteoarthritis, foot, left active Mj rodriguez MD Obesity active Mj Watkins MD ENCOUNTERS Date Type Provider Location Encounter Diag nosis - In-person encounter Office Visit Mj Watkins MD [facility] Chest painHTN essentialHypothyroid ismHyperlipidemiaGER DOsteoarthritis, foot, leftObesity VITAL SIGNS Date Observation Value Provider Body Mass Index (Ratio) 44.93 kg/m2 Toni Watkins MD blood pressure, cuff size large Ke rri Yvonne blood pressure, diastolic 100 mm[Hg] Ke rri Yvonne blood pressure, systolic 162 mm[Hg] Que Russell oxygen saturation, oximetry 98 % Rachel Russell respiratory rate E&M 20 /min Rachel Donis samantha pulse rate 97 /min Rachel Chavezdonnell lder weight E&M 270 [lb_av] Rachel Chavezluanmejia lder height E&M 65 [in_i] Rachel Chavezdonnell lder ALLERGIES Allergy Name Onset Date Reaction Criticality Status SULFA Low Criticality active CODEINE Low Criticality active PCN Low Criticality active HISTORY OF MEDICATION USE Medication Status Instructions Dates Provider Indications Com ments SUCRALFATE 1 GM ORAL TABLET active take one pill as needed for stomach 1 Rachel Russell COZAAR 50 MG ORAL TABLET active take one pill a day 1 Rachel Russell TRAMADOL HCL 50 MG ORAL TABLET active take one pill twice a day 1 Rachel Russell LEVO-T 75 MCG ORAL TABLET active take one pill a day 1 Rachel Yvonne PRAVACHOL 40 MG ORAL TABLET active take one pill a day 1 Rachel Russell ZETIA 10 MG ORAL TABLET active ONE TAB. DAILY 1 Rachel Russell [facility] OMEPRAZOLE 20 MG ORAL TABLET DELAYED RELEASE active take one pill a day as needed 1 Rachel Russell VITAMIN D TABLET active take one pill a day 1 Rachel Russell SOCIAL HISTORY Date Observation Value Provider social history reviewed E&M revi ewed - no changes required Mj Watkins MD smoking status Never smoker Rachel donaldson FAMILY HISTORY Family Member Condition Father Family History of Bryant dden Cardiac : Father Family History of CV A or Stroke: Mother Family History of Bryant dden Cardiac : Mother Family History of CV A or Stroke: INSURANCE PROVIDERS Payer name Policy type / Coverage type [place] red alliance party ID [facility] [id number] Other [id number] HEALTHCARE AND FAMILY SERVICES Medicaid 3 [id number] ADVANCE DIRECTIVES Name Date DISCUSSED - NO DECISION MADE TREATMENT PLAN Date Name Performer Cardiology New Patient Mj rodriguez MD Cardiology New Patient Mj rodriguez MD Cardiology New Patient Mj rodriguez MD Cardiology New Patient Mj rodriguez MD Cardiology New Patient Mj rodriguez MD Cardiology New Patie nt : H er updated medication list for this problem includes: Cozaar 50 Mg Oral Tablet (Losartan potassium) ..... Take one pill a day BP today: 162/100 Mj Watkins MD Date Name Complete Echo HISTORY OF PROCEDURES Procedure Date Procedure Name Provider Procedure Notes S tatus EKG Mj Watkins MD completed
--- OUTSIDE RECORDS SUMMARY | 2025-02-15 07:20 | XMS_ITS | Continuity of Care Document ---
Author Organization [facility] Address [address] [place] [address] Phone Care Team Providers Care Dyeing Machine Tender Name Role Phone No Information Unavailable Unavailable Advance Directives Directive Yes / No Effective Date File Name No Information Encounters Encounter Description Practice Location Reason(s) For Visit Diagnoses Date Provider Providers Copied on Encounter [facility], [address], [place], [place], [id number], [place] tel:[phone] No Information No Information Family History Family Member Type Diagnosis Age At Onset No Information Payers Payer name Insurance type Covered green party ID Authoriza tion(s) No Information Social History Type Description Quantity Date Captured Comments Sex Female Smoking Status No Information Chief Complaint And Reason For Visit No Information Reason For Referral Reason For Referral No Information History Of Present Illness Encounter Date Complaint History Of Prese nt Illness No Information Functional Status Date Functional Assessmen t No Information Instructions Date Instruction Additional Infor mation No Information Assessments Type Assessment Date No Information Patient Care Teams Name Effective Dates (start - stop) Status Members No Information
--- OUTSIDE RECORDS SUMMARY | 2025-02-15 07:20 | XMS_ITS | Clinical Summary ---
Author Organization [facility] Facility Address [address] [address] Care Team Providers Care Build And Deployment Engineer Name Role Phone Santy Degroot MD Primary Care Provider [phone] Social History Tobacco Use Types Packs/Day Years Used Date Smoking Tobacco: Never Assessed Comments Unknown Sex and Gender Information Value Date Recorded Sex Assigned at Not on file Legal Sex Female 2:52 PM EDT Gender Identity Not on file Sexual Orientation Not on file Plan of Treatment Health Maintenance Due Date Last Done Comments Breast Cancer Screening 1950 Colorectal Cancer Screening: Annual FOBT 1998 Colorectal Cancer Screening: Colonoscopy 1998 Colorectal Cancer Screening: Sigmoidoscopy 1998 Pneumococcal Vaccine: 50+ Ye ars ( - PCV) 1999 Influenza Vaccine (Season Ended) 2025 Hepatitis B Vaccine Aged Out No longe r eligible based on patient's age to complete this topic Insurance UHC Medicare Medicaid [place] Care Teams Build And Deployment Engineer Relationship Specialty Start Date End Date Santy Degroot MD [address] [place] [address], [address] [place] [address] PCP - General Internal Medicine 04/08/24
[2025-02-15 07:40] VITALS: PULSE 88; RESP 19; O2SAT 97
--- NOTE | 2025-02-15 08:00 | ECG_ITS ---
Test Date: 2025-02-15 08:10:02 Measurements Intervals [place] Rate: 93 P: 49 SD: 207 QRS: -62 QRSD: 108 T: 67 QT: 367 QTc: 458 Interpretive Statements SINUS RHYTHM WITH OCCASIONAL SUPRAVENTRICULAR PREMATURE COMPLEXES LEFT AXIS DEVIATION INCOMPLETE LEFT BUNDLE BRANCH BLOCK LEFT VENTRICULAR HYPERTROPHY WITH ST-T CHANGE POSSIBLE ANTERIOR MYOCARDIAL INFARCTION , OF INDETERMINATE AGE INFERIOR INFARCT, AGE INDETERMINATE BASELINE ARTIFACT- I, III, AVR, AVL, AVF ABNORMAL ECG No previous ECG available for comparison Electronically Signed On 02-15-2025 08:14:29 CDT by Dylan Álvarez D.O.
[2025-02-15 08:11] LABS: Fractional Inspired Oxygen 21 %; HCO3 VBG 25.6 mEq/l (24.0-30.0); PCO2 VBG 37.7 mmHg (42.0-48.0)
[2025-02-15 08:13] LABS: Device ROOM AIR; PO2 VBG < 27.0 mmHg (35.0-45.0); pH VBG 7.449 (7.300-7.400)
[2025-02-15] MEDS: HYDROmorphone HCL INJ (*CRX) 2 MG/ML VIAL 1 MG IM (08:15)
[2025-02-15 08:18] LABS: Hematocrit 40.2 % (37.0-47.0); Hemoglobin 12.6 g/dL (12.0-15.0); Mean Corpuscular HGB Conc 31.3 g/dl (32-36); Mean Corpuscular Hemoglobin 26.9 pg (26-34); Mean Corpuscular Volume 85.9 fl (80-100); Mean Platelet Volume 11.4 fl (7.4-10.4); Platelet Count Result 202 k/mm3 (150-375); Red Blood Count 4.68 M/mm3 (4.2-5.4); Red Cell Distribution Width 16.1 % (11.5-14.5); White Blood Count 8.9 K/mm3 (4.5-10.0)
[2025-02-15 08:38] LABS: Alanine Aminotransferase 14 U/L (6-35); Albumin Level 4.1 g/dL (3.5-5.1); Alkaline Phosphatase 104 U/L (38-126); Anion Gap 10 mmol/L (4-12); Aspartate Amino Transferase 27 U/L (14-36); Bilirubin,Total 0.9 mg/dL (0.2-1.3); Blood Urea Nitrogen 19 mg/dL (7-17); Calcium 8.6 mg/dL (8.4-10.2); Carbon Dioxide 27 mmol/L (22-30); Chloride 100 mmol/L (98-107); Estimated CRCL calculation 74 ml/min; Estimated Glomerular Filt Rate > 60; Glucose 123 mg/dL (65-110); Lipase 43 U/L (23-300); Phosphorus 3.7 mg/dL (2.5-4.5); Potassium 3.6 mmol/L (3.4-5.0); Sodium 137 mmol/L (137-145)
[2025-02-15 08:40] LABS: INR 1.1; Prothrombin Time 14.8 Seconds (11.1-14.7)
[2025-02-15 08:42] LABS: Partial Thromboplastin Time 30.6 Seconds (22.3-36.8)
[2025-02-15 08:44] LABS: Ethanol < 10 mg/dL (<10)
[2025-02-15 08:50] LABS: Troponin I 0.014 ng/mL (0.000-0.034)
[2025-02-15 08:57] LABS: Influenza A QL RT-PCR Negative (Negative); Influenza B QL RT-PCR Negative (Negative); RSV RNA, RT-PCR Negative (Negative); SARS-CoV-2 RNA PCR Negative (Negative)
[2025-02-15 09:02] VITALS: BP 167/100; PULSE 96; RESP 20; O2SAT 93
--- NOTE | 2025-02-15 09:04 | PC.NURSE ---
pt taken to CT scan at this time.
[2025-02-15 09:14] LABS: Add Urine Microscopic? YES; Appearance Urine Clear (Clear); Bacteria Urine 4+ /hpf; Bilirubin Urine Negative (Negative); Blood Urine Negative (Negative); Color Urine Yellow (Yellow); Glucose Urine UA Negative (Negative); Ketones Urine Negative (Negative); Leukocyte Esterase Ur Trace LEU/UL (Negative); Nitrate Urine Positive (Negative); Non Pathogenic Casts 0-2; Protein Urine Negative (Negative); RBC Urine 0-2 /hpf (0-2); Specific Grav Ur 1.011 (1.001-1.035); Squamous Epithelial Cell Urine None Seen /hpf (Few); Urobilinogen Urine 0.2 mg/dL (<2.0); pH Urine 7.5 (5.0-9.0)
[2025-02-15 09:25] LABS: Amphetamine Screen Urine Negative (Negative); Barbiturate Screen Urine Negative (Negative); Benzodiazepines Screen Urine Negative (Negative); Cannabinoid Screen Urine Negative (Negative); Cocaine Screen Urine Negative (Negative); Methadone Screen Urine Negative (Negative); Opiate Screen Urine Negative (Negative); Phencyclidine Screen Urine Negative (Negative)
--- NOTE | 2025-02-15 09:59 | ED.GENADULT ---
HPI - General Adult General Chief complaint: Extremity Injury, Upper Stated complaint: RUE Time Seen by Provider: 02/15/25 07:01 History of Present Illness HPI narrative: This is a 74-year-old female presenting with right shoulder pain. Patient is a poor historian. Symptoms started approximately 1 week ago. She denies trauma, fevers chills, chest pain, nausea vomiting diarrhea or urinary symptoms. She has not taken anything for pain. She has called her primary care physician and had shoulder x-ray scheduled for tomorrow. Related Data Allergies Allergy/AdvReac Type Severity Reaction Status Date / Time codeine Allergy Intermediate Unknown Verified 02/15/25 08:14 Penicillins Allergy Intermediate Unknown Verified 02/15/25 08:14 Sulfa (Sulfonamide Allergy Intermediate Unknown Verified 02/15/25 08:14 Antibiotics) [facility] Past Medical History Medical History (Updated 02/15/25 @ 10:32 by Lai Mallory MD) History of diabetes mellitus Social History Social History (Updated 04/28/23 @ 17:29 by Vonnie Longoria PA-C) Smoking status: Never smoker Exam Narrative: APPEARANCE: No apparent distress. Head: atraumatic. EYES: EOMI, NOSE: Atraumatic NECK: Trachea midline RESPIRATORY: No increased rate of breathing CTAB CARDIOVASCULAR: RRR, no peripheral edema ABDOMINAL: Non-distended soft nontender MUSCULOSKELETAl: Focal exam of the right shoulder revealed no obvious deformity. Compartments are soft. 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 No overlying skin changes. NEURO: Alert. Moving 4/4 extremities SKIN:: Warm, dry. Normal color PSYCHIATRIC: Normal affect Course Vital Signs Vital signs: Vital Signs Temperature 98 F 02/15/25 06:22 Pulse Rate 101 H 02/15/25 06:22 Respiratory Rate 20 02/15/25 06:22 Blood Pressure 153/80 H 02/15/25 06:22 Pulse Oximetry 97 02/15/25 06:22 Temperature 98 F 02/15/25 06:22 Pulse Rate 96 02/15/25 09:02 Respiratory Rate 20 02/15/25 09:02 Blood Pressure 167/100 H 02/15/25 09:02 Pulse Oximetry 93 02/15/25 09:02 Medical Decision Making [facility] Narrative Medical decision making narrative: -Course: 74-year-old female presenting with atraumatic right shoulder pain. Patient is a poor historian so broader workup was obtained. X-ray negative for acute fracture. Laboratory workup significant for an elevated TSH. Untreated hypothyroid can cause neuropathy which may be the cause of her pain, although her presentation is more consistent with arthritis. No evidence of traumatic injury or septic joint. Pain was controlled in the ED. results were discussed patient. she is comfortable following up with her primary care physician for further management. Patient says she is comfortable living at home by herself. I offered admission for PT OT or possible placement and she has declined. She will be discharged on pain meds. Given return precautions. Patient had incidental UTI which we treated with Keflex. -DDX includes but is not limited to: Arthritis, fracture, dislocation, neuropathy, cervical radiculopathy, ischemia Vital Signs Vital Signs: Vital Signs Temperature 98 F 02/15/25 06:22 Pulse Rate 101 H 02/15/25 06:22 Respiratory Rate 20 02/15/25 06:22 Blood Pressure 153/80 H 02/15/25 06:22 Pulse Oximetry 97 02/15/25 06:22 Temperature 98 F 02/15/25 06:22 Pulse Rate 96 02/15/25 09:02 Respiratory Rate 20 02/15/25 09:02 Blood Pressure 167/100 H 02/15/25 09:02 Pulse Oximetry 93 02/15/25 09:02 Lab Data 02/15/25 08:11 02/15/25 08:11 Labs: Lab Results 02/15/25 02/15/25 02/15/25 Range/Units 08:11 08:17 08:53 WBC 8.9 (4.5-10.0) K/mm3 RBC 4.68 (4.2-5.4) M/mm3 Hgb 12.6 (12.0-15.0) g/dL Hct 40.2 (37.0-47.0) % MCV 85.9 (80-100) fl MCH 26.9 (26-34) pg MCHC 31.3 L (32-36) g/dl RDW 16.1 H (11.5-14.5) % Plt Count 202 (150-375) k/mm3 MPV 11.4 H (7.4-10.4) fl Immature Gran % (Auto) Not Reportable Neut % (Auto) Not Reportable Lymph % (Auto) Not Reportable [place] % (Auto) Not Reportable Eos % (Auto) Not Reportable Baso % (Auto) Not Reportable Lymph # (Auto) Not Reportable [place] # (Auto) Not Reportable Eos # (Auto) Not Reportable Baso # (Auto) Not Reportable Abs Immat Gran (auto) Not Reportable Absolute Neuts (auto) Not Reportable Absolute Nucleated RBC Not Reportable Nucleated RBC % Not Reportable PT 14.8 H (11.1-14.7) Seconds INR 1.1 APTT 30.6 (22.3-36.8) Seconds Sodium 137 (137-145) mmol/L Potassium 3.6 (3.4-5.0) mmol/L Chloride 100 (98-107) mmol/L Carbon Dioxide 27 (22-30) mmol/L Anion Gap 10 (4-12) mmol/L BUN 19 H (7-17) mg/dL Creatinine 0.76 (0.7-1.0) mg/dL Estim Creat Clear Calc 74 ml/min Estimated GFR > 60 (59 - ) Glucose 123 H (65-110) mg/dL Lactic Acid 1.0 (0.7-2.0) mmol/L Calcium 8.6 (8.4-10.2) mg/dL Phosphorus 3.7 (2.5-4.5) mg/dL Magnesium 2.0 (1.6-2.3) mg/dL Total Bilirubin 0.9 (0.2-1.3) mg/dL AST 27 (14-36) U/L ALT 14 (6-35) U/L Alkaline Phosphatase 104 (38-126) U/L Troponin I 0.014 (0.000-0.034) ng/mL Total Protein 8.0 (6.3-8.2) g/dL Albumin 4.1 (3.5-5.1) g/dL Lipase 43 (23-300) U/L TSH (Reflex) 10.000 H (0.465-4.68) uIU/mL Free T4 0.84 (0.78-2.19) ng/dL Total T3 Pending Urine Color Yellow (Yellow) Urine Appearance Clear (Clear) Urine pH 7.5 (5.0-9.0) Ur Specific [place] 1.011 (1.001-1.035) Urine Protein Negative (Negative) mg/dL Urine Glucose (UA) Negative (Negative) mg/dL Urine Ketones Negative (Negative) mg/dL Ur Blood (Man) Negative (Negative) Urine Nitrate Positive H (Negative) Urine Bilirubin Negative (Negative) Urine Urobilinogen 0.2 (<2.0) mg/dL Leukocyte Esterase Rfl Trace H (Negative) WOODY/UL Urine RBC 0-2 (0-2) /hpf Urine WBC 6-10 H (0-3) /hpf Ur Squamous Epith Cells None seen (Few) /hpf Urine Bacteria 4+ H /hpf Urine Casts 0-2 Urine Opiates Screen Negative (Negative) Urine Methadone Screen Negative (Negative) Ur Barbiturates Screen Negative (Negative) Ur Phencyclidine Scrn Negative (Negative) Ur Amphetamine Screen Negative (Negative) U Benzodiazepines Scrn Negative (Negative) Urine Cocaine Screen Negative (Negative) U Cannabinoids Screen Negative (Negative) Ethyl Alcohol < 10 (<10) mg/dL Influenza A (RT-PCR) Negative (Negative) Influenza B (RT-PCR) Negative (Negative) RSV (RT-PCR) Negative (Negative) SARS-CoV-2 RNA (RT-PCR) Negative (Negative) ABG Data ABG results: 02/15/25 08:07 VBG pH 7.449 H* VBG pCO2 37.7 L VBG pO2 < 27.0 L VBG HCO3 25.6 O2 Delivery Device Room air O2 Liters/Min Not Reportable FiO2 21 Discharge Plan Discharge Clinical Impression: Acute shoulder pain, Hypothyroid, Acute UTI Patient Disposition: Home Condition: Stable Instructions: Antibiotic Form, Shoulder Pain (ED) Additional Instructions: You were seen in the emergency department for shoulder pain. Please use the pain medications as instructed. You have a UTI and should take a course of Keflex. If you develop any new or worsening symptoms, or feel you are not capable of living at home by herself please return to the ED for re-evaluation. Your TSH is elevated. these needs to be further evaluated by your primary care physician. Please call your primary care physician and arrange followup in the next 24-48 hours. Patient Language: Tristanian Prescriptions: New acetaminophen 500 mg tablet 1,000 mg PO TID PRN (Reason: alexia) 7 Days Qty: 42 0RF oxycodone 5 mg tablet 5 mg PO Q4H PRN (Reason: pain) Qty: 14 0RF cephalexin 500 mg capsule 500 mg PO Q12H Qty: 10 0RF No Action rivaroxaban 15 mg tablet 15 mg PO BID 21 Days Qty: 42 0RF Rx Instructions: must administer with a meal/food Follow-up/Referrals: Zane,MD Santy [Primary Care Provider] - 2 Days (Shoulder pain, Elevated TSH)
[2025-02-15 10:22] LABS: Free T4 Free Thyroxine Reflex 0.84 ng/dL (0.78-2.19)
[2025-02-15] MEDS: CEPHALEXIN 500 MG CAPSULE PO (10:54)
[2025-02-15] MEDS: ACETAMINOPHEN 500 MG TABLET 1000 MG PO (10:54)
[2025-02-15] MEDS: KETOROLAC 15 MG/ML VIAL (*BKC) IV PUSH (10:54)
[2025-02-15 12:15] VITALS: BP 118/92; PULSE 80; RESP 18; O2SAT 95
[2025-02-15 13:10] LABS: Total Triiodothyronine (T3) 0.96 NG/ML (0.97-1.69)
== END 2025-02-15 12:27 | disposition home or self-care (01) ==
PROVIDERS: Emergency Provider Emergency Medicine; PCP Internal Medicine
DX: M25.511 Pain in right shoulder (principal); E03.9 Hypothyroidism, unspecified; N39.0 Urinary tract infection, site not specified; E11.9 Type 2 diabetes mellitus without complications; Z20.822 Contact with and (suspected) exposure to COVID-19; Z79.01 Long term (current) use of anticoagulants; M47.812 Spondylosis without myelopathy or radiculopathy, cervical region; I51.7 Cardiomegaly; R09.89 Other specified symptoms and signs involving the circulatory and respiratory systems; I49.1 Atrial premature depolarization; I44.7 Left bundle-branch block, unspecified; R94.31 Abnormal electrocardiogram [ECG] [EKG]
CPT/HCPCS: 36415; 51702; 70450; 71045; 72125; 73030; 80053; 80307; 81001; 82077; 82803; 83605; 83690; 83735; 84100; 84439; 84443; 84480; 84484; 85025; 85610; 85730; 87077; 87086; 87186; 87637; 93005; 96372; 96374; 99284; A9270; J1171; J1885